=== PATIENT | male | born 1950 | race Caucasian/White ===

== ENCOUNTER 2019-11-10 17:53 | Emergency (ER) | payer MEDICARE ==
--- NOTE | 2019-11-10 18:38 | RAD ---
SINGLE VIEW OF THE CHEST: 11/10/19 COMPARISON: 04/06/16. HISTORY: Cough and tachycardia. FINDINGS: Single view of the chest shows a normal sized cardiomediastinal silhouette. There is no evidence of c onsolidation, mass, or pleural effusion. The bones are unremarkable. IMPRESSION: No evidence of acute cardiopulmonary disease. POS: [facility]
[2019-11-10 18:47] LABS: #Basophils 0.1 thou/uL (0.0-0.2); #Eosinphils 0.3 thou/uL (0.0-0.7); #Lymphocytes 3.9 thou/uL (1.20-3.40); #Monocytes 1.1 thou/uL (0.11-0.59); #Neutrophils 6.1 thou/uL (1.40-6.50); %Basophils 0.9 % (0.0-1.0); %Eosinophils 2.2 % (0.0-10.0); %Lymphocytes 34.2 % (21.0-51.0); %Neutrophils 52.8 % (42.0-75.0); Hemoglobin 15.7 g/dL (14.0-18.0); Mean Corpuscular HGB CONC 32.8 g/dL (32.0-36.0); Mean Corpuscular Hemoglobin 32.6 pg (27.0-31.0); Mean Corpuscular Volume 99.2 fL (78.0-98.0); Mean Platelet Volume 7.6 fL (7.4-10.4); Platelet Count 241 thou/uL (130-400); RBC Distribution Width 11.1 % (11.5-14.5); Red Blood Cell (RBC) Count 4.82 mill/uL (4.70-6.10); White Blood Cell (WBC) Count 11.5 thou/uL (4.8-10.8)
[2019-11-10 18:50] LABS: Bilirubin Negative (Negative); Blood, Urine Negative (Negative); Clarity Clear (Clear); Glucose, Urine (Dipstick) Negative (Negative); Leukocyte Negative (Negative); Nitrite Negative (Negative); Protein, Urine (Dipstick) Negative (Neg-Trace); Urobilinogen 0.2 mg/dL (Less than 2)
[2019-11-10 18:54] LABS: Amphetamine Not Detected (NotDetected); Barbiturates Screen Not Detected (NotDetected); Benzodiazepine Screen Not Detected (NotDetected); Cocaine Metabolite Screen Not Detected (NotDetected); Medtox Control Line Valid? VALID (VALID); Methadone Not Detected (NotDetected); Methamphetamine Not Detected (NotDetected); Opiate Screen Not Detected (NotDetected); Oxycodone Screen Not Detected (NotDetected); Phencyclidine (PCP) Not Detected (NotDetected); THC/Cannabinoid Screen Not Detected (NotDetected); Tricyclic Screen Not Detected (NotDetected)
[2019-11-10 19:00] LABS: Acetaminophen Less than 6.0 mcg/mL (10.0-30.0); Alcohol 156 mg/dL (Less than 10); Salicylate Less than 8.0 mg/dL (15.0-30.0)
[2019-11-10 19:04] LABS: ALT (SGPT) 16 U/L (8-55); AST (SGOT) 28 U/L (5-34); Albumin 4.1 g/dL (3.4-4.8); Alkaline Phosphatase 107 U/L (40-110); Anion Gap 18 mmol/L (10-20); BUN (Urea Nitrogen) 5 mg/dL (8.4-25.7); Bilirubin, Total 0.4 mg/dL (0.2-1.2); Calc. Creatinine Clearance 0 mL/min (70-130); Calcium 9.7 mg/dL (7.8-10.44); Carbon Dioxide 20 mmol/L (23-31); Chloride 96 mmol/L (98-107); Estimated GFR-MDRD Greater than 90; Globulin 3.5 g/dL (2.4-3.5); Glucose 112 mg/dL (80-115); Lipase 43 U/L (8-78); Potassium 3.4 mmol/L (3.5-5.1); Protein, Total 7.6 g/dL (5.8-8.1); Sodium 131 mmol/L (136-145)
[2019-11-10 19:05] LABS: CRP (Inflammatory) Less than 0.50 mg/dL (= or < 0.5); Magnesium 1.6 mg/dL (1.6-2.6)
== END 2019-11-10 20:00 | disposition home or self-care (01) ==
LOC: BURERS 17:53
DX: F10.129 Alcohol abuse with intoxication, unspecified (principal); E86.0 Dehydration; F17.210 Nicotine dependence, cigarettes, uncomplicated; Z79.899 Other long term (current) drug therapy
CPT/HCPCS: 71045; 80053; 80306; 80307; 81003; 83605; 83690; 83735; 84443; 84484; 85025; 86140; 93005; 94760; 96360

== ENCOUNTER 2021-03-06 23:34 | Inpatient (IN) | payer MEDICARE ==
[2021-03-07] MEDS ORDERED: Ondansetron PF 4 MG/2 ML Vial ONE (00:10)
[2021-03-07] MEDS ORDERED: Ketorolac Tromethamine 30 MG/ML VIAL ONE (00:10)
[2021-03-07] MEDS ORDERED: Fentanyl 100 MCG/2 ML VIAL ONE ×2 (00:10→02:25)
[2021-03-07 01:40] VITALS: BMI 17.1
[2021-03-07 02:22] LABS: SARS-CoV-2 NAA Rapid Test Not Detected (NotDetected)
[2021-03-07] MEDS ORDERED: HYDROcodone/Acetaminophen 5/325 mg Tablet PO PRN ×2 (02:40→02:41)
[2021-03-07] MEDS ORDERED: Ondansetron PF 4 MG/2 ML Vial IVP PRN (02:45)
[2021-03-07] MEDS ORDERED: Acetaminophen 325 MG TAB PO PRN (02:45)
[2021-03-07] MEDS ORDERED: Ondansetron ODT 4 MG TAB SL PRN (02:45)
[2021-03-07] MEDS ORDERED: traMADol HCl 50 MG TAB PO PRN (02:46)
[2021-03-07] MEDS ORDERED: Cyclobenzaprine 10 MG TAB PO PRN (02:48)
[2021-03-07] MEDS ORDERED: hydrOXYzine 25 MG TAB PO PRN (02:49)
[2021-03-07] MEDS ORDERED: SUMAtriptan Succinate 25 MG TAB PO PRN ×2 (02:56→09:52)
[2021-03-07] MEDS: Acetaminophen 500 MG TAB PO SCH ×4 (05:28→17:57)
[2021-03-07] MEDS: traMADol HCl 50 MG TAB PO SCH ×3 (05:29→17:58)
[2021-03-07] MEDS: Ibuprofen 200 MG TAB PO PRN (08:16)
[2021-03-07] MEDS: Gabapentin 300 MG CAP PO SCH ×4 (08:23→21:27)
[2021-03-07] MEDS: SERAX PO SCH ×2 (08:31→21:28)
[2021-03-07] MEDS ORDERED: Tamsulosin HCl 0.4 MG CAP PO SCH (09:00)
[2021-03-07] MEDS ORDERED: Thiamine 100 MG TAB PO SCH (09:00)
[2021-03-07] MEDS ORDERED: Folic Acid 1 MG TAB PO SCH (09:00)
[2021-03-07] MEDS ORDERED: Losartan Potassium 50 MG TAB PO SCH (09:00)
[2021-03-07] MEDS ORDERED: Amlodipine 5 MG TAB PO SCH (21:00)
[2021-03-07] MEDS ORDERED: OXAZEPAM 10 MG PO SCH (21:00)
[2021-03-07] MEDS ORDERED: traZODone HCl 50 MG TAB PO SCH (21:00)
[2021-03-07] MEDS: Amlodipine 5 MG TAB PO SCH (21:28)
[2021-03-08] MEDS: traMADol HCl 50 MG TAB PO SCH ×4 (00:28→17:38)
[2021-03-08] MEDS: Acetaminophen 500 MG TAB PO SCH ×4 (00:29→17:37)
[2021-03-08 05:09] LABS: #Basophils 0.1 thou/uL (0.0-0.2); #Eosinphils 0.3 thou/uL (0.0-0.7); #Neutrophils 4.7 thou/uL (1.40-6.50); %Basophils 0.7 % (0.0-1.0); %Eosinophils 3.5 % (0.0-10.0); %Lymphocytes 33.5 % (21.0-51.0); %Monocytes 10.6 % (0.0-10.0); %Neutrophils 51.7 % (42.0-75.0); Hemoglobin 12.6 g/dL (14.0-18.0); Mean Corpuscular Hemoglobin 31.6 pg (27.0-31.0); Mean Corpuscular Volume 92.9 fL (78.0-98.0); Mean Platelet Volume 7.6 fL (7.4-10.4); Platelet Count 328 thou/uL (130-400); RBC Distribution Width 12.5 % (11.5-14.5); White Blood Cell (WBC) Count 9.1 thou/uL (4.8-10.8)
[2021-03-08] MEDS: Folic Acid 1 MG TAB PO SCH (09:46)
[2021-03-08] MEDS: Gabapentin 300 MG CAP PO SCH ×3 (09:47→20:37)
[2021-03-08] MEDS: Losartan Potassium 50 MG TAB PO SCH (09:48)
[2021-03-08] MEDS: Tamsulosin HCl 0.4 MG CAP PO SCH (09:48)
[2021-03-08] MEDS: Thiamine 100 MG TAB PO SCH (09:48)
[2021-03-08] MEDS: SERAX PO SCH ×2 (09:49→20:38)
[2021-03-08] MEDS: Cyclobenzaprine 10 MG TAB PO PRN (09:53)
[2021-03-08] MEDS ORDERED: Norepinephrine 4 MG/4 ML VIAL ONE (11:36)
[2021-03-08] MEDS: Amlodipine 5 MG TAB PO SCH (20:37)
[2021-03-09] MEDS: Acetaminophen 500 MG TAB PO SCH ×5 (01:18→23:54)
[2021-03-09] MEDS: traMADol HCl 50 MG TAB PO SCH ×5 (01:19→23:55)
[2021-03-09] MEDS: Gabapentin 300 MG CAP PO SCH ×3 (07:57→20:15)
[2021-03-09] MEDS: Folic Acid 1 MG TAB PO SCH (07:57)
[2021-03-09] MEDS: Losartan Potassium 50 MG TAB PO SCH (07:58)
[2021-03-09] MEDS: Tamsulosin HCl 0.4 MG CAP PO SCH (07:58)
[2021-03-09] MEDS: Thiamine 100 MG TAB PO SCH (07:58)
[2021-03-09] MEDS: SERAX PO SCH ×2 (08:00→21:41)
[2021-03-09] MEDS: Polyethylene Glycol 3350 17 GM Packet PO PRN (14:30)
[2021-03-09] MEDS: Amlodipine 5 MG TAB PO SCH (20:15)
[2021-03-09] MEDS: hydrOXYzine 25 MG TAB PO PRN (20:16)
[2021-03-10] MEDS: Acetaminophen 500 MG TAB PO SCH ×4 (05:06→23:57)
[2021-03-10] MEDS: traMADol HCl 50 MG TAB PO SCH ×4 (05:08→23:58)
[2021-03-10] MEDS: Thiamine 100 MG TAB PO SCH (09:23)
[2021-03-10] MEDS: Tamsulosin HCl 0.4 MG CAP PO SCH (09:24)
[2021-03-10] MEDS: Gabapentin 300 MG CAP PO SCH ×3 (09:24→22:53)
[2021-03-10] MEDS: Folic Acid 1 MG TAB PO SCH (09:24)
[2021-03-10] MEDS: Losartan Potassium 50 MG TAB PO SCH (09:24)
[2021-03-10] MEDS: SERAX PO SCH ×2 (09:31→22:58)
[2021-03-10] MEDS: Amlodipine 5 MG TAB PO SCH (22:53)
[2021-03-11] MEDS: traMADol HCl 50 MG TAB PO SCH ×4 (06:24→23:38)
[2021-03-11] MEDS: Acetaminophen 500 MG TAB PO SCH ×4 (06:25→23:37)
[2021-03-11] MEDS: Losartan Potassium 50 MG TAB PO SCH (09:26)
[2021-03-11] MEDS: Gabapentin 300 MG CAP PO SCH ×3 (09:26→21:48)
[2021-03-11] MEDS: Tamsulosin HCl 0.4 MG CAP PO SCH (09:27)
[2021-03-11] MEDS: Folic Acid 1 MG TAB PO SCH (09:27)
[2021-03-11] MEDS: Thiamine 100 MG TAB PO SCH (09:27)
[2021-03-11] MEDS: SERAX PO SCH ×2 (09:28→21:49)
[2021-03-11] MEDS: Amlodipine 5 MG TAB PO SCH (21:47)
[2021-03-11] MEDS: Ibuprofen 200 MG TAB PO PRN (21:48)
[2021-03-12] MEDS: Acetaminophen 500 MG TAB PO SCH ×4 (05:46→23:54)
[2021-03-12] MEDS: traMADol HCl 50 MG TAB PO SCH ×4 (05:47→23:53)
[2021-03-12] MEDS: Gabapentin 300 MG CAP PO SCH ×3 (08:54→20:07)
[2021-03-12] MEDS: Folic Acid 1 MG TAB PO SCH (08:54)
[2021-03-12] MEDS: Tamsulosin HCl 0.4 MG CAP PO SCH (08:55)
[2021-03-12] MEDS: Losartan Potassium 50 MG TAB PO SCH (08:55)
[2021-03-12] MEDS: Thiamine 100 MG TAB PO SCH (08:55)
[2021-03-12] MEDS: SERAX PO SCH ×2 (08:56→20:08)
[2021-03-12] MEDS: Amlodipine 5 MG TAB PO SCH (20:07)
[2021-03-12] MEDS: Ibuprofen 200 MG TAB PO PRN (20:10)
[2021-03-12] MEDS: hydrOXYzine 25 MG TAB PO PRN (21:09)
[2021-03-13] MEDS: traMADol HCl 50 MG TAB PO SCH ×4 (05:17→23:24)
[2021-03-13] MEDS: Acetaminophen 500 MG TAB PO SCH ×4 (05:18→23:23)
[2021-03-13] MEDS: Polyethylene Glycol 3350 17 GM Packet PO PRN (08:39)
[2021-03-13] MEDS: Gabapentin 300 MG CAP PO SCH ×3 (08:40→20:31)
[2021-03-13] MEDS: Thiamine 100 MG TAB PO SCH (08:41)
[2021-03-13] MEDS: Losartan Potassium 50 MG TAB PO SCH (08:41)
[2021-03-13] MEDS: Folic Acid 1 MG TAB PO SCH (08:41)
[2021-03-13] MEDS: Tamsulosin HCl 0.4 MG CAP PO SCH (08:41)
[2021-03-13] MEDS: SERAX PO SCH ×2 (08:42→23:10)
[2021-03-13] MEDS: Cyclobenzaprine 10 MG TAB PO PRN (10:46)
[2021-03-13] MEDS: Ibuprofen 200 MG TAB PO PRN (10:49)
[2021-03-13] MEDS: hydrOXYzine 25 MG TAB PO PRN (20:31)
[2021-03-13] MEDS: Amlodipine 5 MG TAB PO SCH (20:31)
[2021-03-14] MEDS: Acetaminophen 500 MG TAB PO SCH ×4 (07:09→23:49)
[2021-03-14] MEDS: traMADol HCl 50 MG TAB PO SCH ×4 (07:11→23:49)
[2021-03-14] MEDS: Polyethylene Glycol 3350 17 GM Packet PO PRN (08:28)
[2021-03-14] MEDS: Tamsulosin HCl 0.4 MG CAP PO SCH (08:29)
[2021-03-14] MEDS: Losartan Potassium 50 MG TAB PO SCH (08:30)
[2021-03-14] MEDS: Folic Acid 1 MG TAB PO SCH (08:30)
[2021-03-14] MEDS: Thiamine 100 MG TAB PO SCH (08:30)
[2021-03-14] MEDS: Gabapentin 300 MG CAP PO SCH ×3 (08:31→20:27)
[2021-03-14] MEDS: SERAX PO SCH ×2 (10:31→20:28)
[2021-03-14] MEDS: hydrOXYzine 25 MG TAB PO PRN (20:28)
[2021-03-14] MEDS: Amlodipine 5 MG TAB PO SCH (20:28)
[2021-03-14 23:19] LABS: SARS-CoV-2 PCR by NAA Not Detected (NotDetected)
[2021-03-15] MEDS: traMADol HCl 50 MG TAB PO SCH ×4 (05:27→23:51)
[2021-03-15] MEDS: Acetaminophen 500 MG TAB PO SCH ×4 (05:28→23:51)
[2021-03-15] MEDS: Polyethylene Glycol 3350 17 GM Packet PO PRN (08:41)
[2021-03-15] MEDS: Folic Acid 1 MG TAB PO SCH (08:41)
[2021-03-15] MEDS: Gabapentin 300 MG CAP PO SCH ×3 (08:41→20:09)
[2021-03-15] MEDS: Thiamine 100 MG TAB PO SCH (08:42)
[2021-03-15] MEDS: Tamsulosin HCl 0.4 MG CAP PO SCH (08:42)
[2021-03-15] MEDS: SERAX PO SCH ×2 (08:42→21:14)
[2021-03-15] MEDS: Losartan Potassium 50 MG TAB PO SCH (08:42)
[2021-03-15] MEDS: Cyclobenzaprine 10 MG TAB PO PRN (16:02)
[2021-03-15] MEDS: hydrOXYzine 25 MG TAB PO PRN (20:08)
[2021-03-15] MEDS: Amlodipine 5 MG TAB PO SCH (20:08)
[2021-03-16] MEDS: Acetaminophen 500 MG TAB PO SCH ×3 (05:40→17:52)
[2021-03-16] MEDS: traMADol HCl 50 MG TAB PO SCH ×3 (05:41→17:51)
[2021-03-16] MEDS: Tamsulosin HCl 0.4 MG CAP PO SCH (08:17)
[2021-03-16] MEDS: Gabapentin 300 MG CAP PO SCH ×3 (08:17→20:44)
[2021-03-16] MEDS: Losartan Potassium 50 MG TAB PO SCH (08:17)
[2021-03-16] MEDS: Folic Acid 1 MG TAB PO SCH (08:18)
[2021-03-16] MEDS: Thiamine 100 MG TAB PO SCH (08:18)
[2021-03-16] MEDS: Ibuprofen 200 MG TAB PO PRN (10:17)
[2021-03-16] MEDS: SERAX PO SCH ×2 (17:52→21:00)
[2021-03-16] MEDS: Amlodipine 5 MG TAB PO SCH (20:43)
[2021-03-16] MEDS: hydrOXYzine 25 MG TAB PO PRN (20:44)
[2021-03-17] MEDS: Acetaminophen 500 MG TAB PO SCH ×5 (00:23→23:57)
[2021-03-17] MEDS: traMADol HCl 50 MG TAB PO SCH ×5 (00:23→23:56)
[2021-03-17] MEDS: Tamsulosin HCl 0.4 MG CAP PO SCH (09:57)
[2021-03-17] MEDS: Gabapentin 300 MG CAP PO SCH ×3 (09:57→20:21)
[2021-03-17] MEDS: Losartan Potassium 50 MG TAB PO SCH (09:58)
[2021-03-17] MEDS: Thiamine 100 MG TAB PO SCH (09:58)
[2021-03-17] MEDS: Folic Acid 1 MG TAB PO SCH (09:58)
[2021-03-17] MEDS: SERAX PO SCH (09:59)
[2021-03-17] MEDS: hydrOXYzine 25 MG TAB PO PRN (20:21)
[2021-03-17] MEDS: Amlodipine 5 MG TAB PO SCH (20:21)
[2021-03-18] MEDS: Acetaminophen 500 MG TAB PO SCH ×4 (05:23→23:47)
[2021-03-18] MEDS: traMADol HCl 50 MG TAB PO SCH ×4 (05:23→23:48)
[2021-03-18] MEDS: Gabapentin 300 MG CAP PO SCH ×3 (08:29→20:31)
[2021-03-18] MEDS: Tamsulosin HCl 0.4 MG CAP PO SCH (08:30)
[2021-03-18] MEDS: Folic Acid 1 MG TAB PO SCH (08:30)
[2021-03-18] MEDS: Thiamine 100 MG TAB PO SCH (08:30)
[2021-03-18] MEDS: Losartan Potassium 50 MG TAB PO SCH (08:30)
[2021-03-18] MEDS: Amlodipine 5 MG TAB PO SCH (20:31)
[2021-03-18] MEDS: hydrOXYzine 25 MG TAB PO PRN (20:31)
[2021-03-19 00:50] LABS: SARS-CoV-2 PCR by NAA Not Detected (NotDetected)
[2021-03-19] MEDS: traMADol HCl 50 MG TAB PO SCH ×3 (05:27→17:41)
[2021-03-19] MEDS: Acetaminophen 500 MG TAB PO SCH ×3 (05:28→17:41)
[2021-03-19] MEDS: Folic Acid 1 MG TAB PO SCH (08:23)
[2021-03-19] MEDS: Thiamine 100 MG TAB PO SCH (08:23)
[2021-03-19] MEDS: Gabapentin 300 MG CAP PO SCH ×3 (08:24→20:11)
[2021-03-19] MEDS: Tamsulosin HCl 0.4 MG CAP PO SCH (08:24)
[2021-03-19] MEDS: Losartan Potassium 50 MG TAB PO SCH (08:25)
[2021-03-19] MEDS: Amlodipine 5 MG TAB PO SCH (20:11)
[2021-03-19] MEDS: Cyclobenzaprine 10 MG TAB PO PRN (20:12)
[2021-03-20] MEDS: traMADol HCl 50 MG TAB PO SCH ×5 (00:12→23:52)
[2021-03-20] MEDS: Acetaminophen 500 MG TAB PO SCH ×5 (00:12→23:51)
[2021-03-20] MEDS: Gabapentin 300 MG CAP PO SCH ×3 (04:15→20:39)
[2021-03-20] MEDS: Losartan Potassium 50 MG TAB PO SCH (04:16)
[2021-03-20] MEDS: Tamsulosin HCl 0.4 MG CAP PO SCH (04:17)
[2021-03-20] MEDS: Thiamine 100 MG TAB PO SCH (17:40)
[2021-03-20] MEDS: Folic Acid 1 MG TAB PO SCH (17:41)
[2021-03-20] MEDS: Amlodipine 5 MG TAB PO SCH (20:39)
[2021-03-20] MEDS: hydrOXYzine 25 MG TAB PO PRN (20:39)
[2021-03-21] MEDS: Cyclobenzaprine 10 MG TAB PO PRN (01:04)
[2021-03-21] MEDS: Ibuprofen 200 MG TAB PO PRN ×2 (03:55→22:17)
[2021-03-21] MEDS: Acetaminophen 500 MG TAB PO SCH ×4 (05:38→23:41)
[2021-03-21] MEDS: traMADol HCl 50 MG TAB PO SCH ×4 (05:38→23:43)
[2021-03-21] MEDS: Thiamine 100 MG TAB PO SCH (08:24)
[2021-03-21] MEDS: Gabapentin 300 MG CAP PO SCH ×3 (08:24→19:39)
[2021-03-21] MEDS: Folic Acid 1 MG TAB PO SCH (08:25)
[2021-03-21] MEDS: Losartan Potassium 50 MG TAB PO SCH (08:25)
[2021-03-21] MEDS: Tamsulosin HCl 0.4 MG CAP PO SCH (08:25)
[2021-03-21] MEDS: hydrOXYzine 25 MG TAB PO PRN (19:38)
[2021-03-21] MEDS: Amlodipine 5 MG TAB PO SCH (19:39)
[2021-03-22] MEDS: Cyclobenzaprine 10 MG TAB PO PRN (02:53)
[2021-03-22] MEDS: traMADol HCl 50 MG TAB PO SCH ×4 (05:27→23:51)
[2021-03-22] MEDS: Acetaminophen 500 MG TAB PO SCH ×4 (05:28→23:55)
[2021-03-22] MEDS: Tamsulosin HCl 0.4 MG CAP PO SCH (08:35)
[2021-03-22] MEDS: Thiamine 100 MG TAB PO SCH (08:35)
[2021-03-22] MEDS: Gabapentin 300 MG CAP PO SCH ×3 (08:36→20:50)
[2021-03-22] MEDS: Folic Acid 1 MG TAB PO SCH (08:36)
[2021-03-22] MEDS: Losartan Potassium 50 MG TAB PO SCH (08:36)
[2021-03-22] MEDS: hydrOXYzine 25 MG TAB PO PRN (20:50)
[2021-03-22] MEDS: Amlodipine 5 MG TAB PO SCH (20:51)
[2021-03-22 23:30] LABS: SARS-CoV-2 PCR by NAA Not Detected (NotDetected)
[2021-03-23] MEDS: Acetaminophen 500 MG TAB PO SCH ×4 (05:32→23:38)
[2021-03-23] MEDS: traMADol HCl 50 MG TAB PO SCH ×4 (05:32→23:37)
[2021-03-23] MEDS: Folic Acid 1 MG TAB PO SCH (09:08)
[2021-03-23] MEDS: Thiamine 100 MG TAB PO SCH (09:08)
[2021-03-23] MEDS: Losartan Potassium 50 MG TAB PO SCH (09:08)
[2021-03-23] MEDS: Tamsulosin HCl 0.4 MG CAP PO SCH (09:08)
[2021-03-23] MEDS: Gabapentin 300 MG CAP PO SCH ×3 (09:08→20:30)
[2021-03-23] MEDS: Ibuprofen 200 MG TAB PO PRN (11:13)
[2021-03-23] MEDS: hydrOXYzine 25 MG TAB PO PRN (20:31)
[2021-03-23] MEDS: Amlodipine 5 MG TAB PO SCH (20:31)
[2021-03-24] MEDS: Acetaminophen 500 MG TAB PO SCH ×3 (05:29→17:35)
[2021-03-24] MEDS: traMADol HCl 50 MG TAB PO SCH ×3 (05:29→17:35)
[2021-03-24] MEDS: Polyethylene Glycol 3350 17 GM Packet PO PRN (09:45)
[2021-03-24] MEDS: Thiamine 100 MG TAB PO SCH (09:45)
[2021-03-24] MEDS: Tamsulosin HCl 0.4 MG CAP PO SCH (09:45)
[2021-03-24] MEDS: Losartan Potassium 50 MG TAB PO SCH (09:45)
[2021-03-24] MEDS: Folic Acid 1 MG TAB PO SCH (09:45)
[2021-03-24] MEDS: Gabapentin 300 MG CAP PO SCH ×3 (09:45→20:46)
[2021-03-24] MEDS: hydrOXYzine 25 MG TAB PO PRN (20:46)
[2021-03-24] MEDS: Amlodipine 5 MG TAB PO SCH (20:47)
[2021-03-25] MEDS: Acetaminophen 500 MG TAB PO SCH ×4 (00:28→17:59)
[2021-03-25] MEDS: traMADol HCl 50 MG TAB PO SCH ×4 (00:29→18:00)
[2021-03-25] MEDS: Gabapentin 300 MG CAP PO SCH ×3 (09:18→20:44)
[2021-03-25] MEDS: Losartan Potassium 50 MG TAB PO SCH (09:19)
[2021-03-25] MEDS: Tamsulosin HCl 0.4 MG CAP PO SCH (09:19)
[2021-03-25] MEDS: Thiamine 100 MG TAB PO SCH (09:19)
[2021-03-25] MEDS: Folic Acid 1 MG TAB PO SCH (09:20)
[2021-03-25] MEDS: Amlodipine 5 MG TAB PO SCH (20:43)
[2021-03-26] MEDS: traMADol HCl 50 MG TAB PO SCH ×5 (00:23→23:36)
[2021-03-26] MEDS: Acetaminophen 500 MG TAB PO SCH ×5 (00:25→23:37)
[2021-03-26] MEDS: Folic Acid 1 MG TAB PO SCH (09:38)
[2021-03-26] MEDS: Gabapentin 300 MG CAP PO SCH ×3 (09:38→20:19)
[2021-03-26] MEDS: Tamsulosin HCl 0.4 MG CAP PO SCH (09:38)
[2021-03-26] MEDS: Thiamine 100 MG TAB PO SCH (09:39)
[2021-03-26] MEDS: Losartan Potassium 50 MG TAB PO SCH (09:39)
[2021-03-26 15:16] LABS: SARS-CoV-2 PCR by NAA Not Detected (NotDetected)
[2021-03-26] MEDS: hydrOXYzine 25 MG TAB PO PRN (20:21)
[2021-03-26] MEDS: Amlodipine 5 MG TAB PO SCH (20:22)
[2021-03-27] MEDS: traMADol HCl 50 MG TAB PO SCH ×4 (05:33→23:41)
[2021-03-27] MEDS: Acetaminophen 500 MG TAB PO SCH ×4 (05:34→23:41)
[2021-03-27] MEDS: Losartan Potassium 50 MG TAB PO SCH (09:35)
[2021-03-27] MEDS: Tamsulosin HCl 0.4 MG CAP PO SCH (09:54)
[2021-03-27] MEDS: Ibuprofen 200 MG TAB PO PRN (09:55)
[2021-03-27] MEDS: Thiamine 100 MG TAB PO SCH (09:56)
[2021-03-27] MEDS: Gabapentin 300 MG CAP PO SCH ×3 (09:56→20:32)
[2021-03-27] MEDS: Folic Acid 1 MG TAB PO SCH (09:56)
[2021-03-27] MEDS: hydrOXYzine 25 MG TAB PO PRN (20:33)
[2021-03-27] MEDS: Amlodipine 5 MG TAB PO SCH (20:33)
[2021-03-28] MEDS: Acetaminophen 500 MG TAB PO SCH ×4 (05:36→23:42)
[2021-03-28] MEDS: traMADol HCl 50 MG TAB PO SCH ×4 (05:37→23:43)
[2021-03-28] MEDS: Gabapentin 300 MG CAP PO SCH ×3 (07:58→20:29)
[2021-03-28] MEDS: Tamsulosin HCl 0.4 MG CAP PO SCH (07:59)
[2021-03-28] MEDS: Folic Acid 1 MG TAB PO SCH (07:59)
[2021-03-28] MEDS: Losartan Potassium 50 MG TAB PO SCH (07:59)
[2021-03-28] MEDS: Thiamine 100 MG TAB PO SCH (07:59)
[2021-03-28 17:39] LABS: Bilirubin Negative (Negative); Blood, Urine Moderate (Negative); Clarity Cloudy (Clear); Glucose, Urine (Dipstick) Negative (Negative); Ketone, Urine 15 mg/dL (Negative); Leukocyte Large (Negative); Nitrite Positive (Negative); Protein, Urine (Dipstick) 30 mg/dL (Neg-Trace)
[2021-03-28 17:44] LABS: Squamous Epithelial None Seen HPF (0-3); WBC/HPF 21-50 HPF (0-3)
[2021-03-28 17:45] LABS: Bacteria/HPF 3+ HPF (None Seen)
[2021-03-28] MEDS: Amlodipine 5 MG TAB PO SCH (20:29)
[2021-03-28] MEDS: Ciprofloxacin 500 MG TAB PO SCH (20:30)
[2021-03-29] MEDS: Ciprofloxacin 500 MG TAB PO SCH ×2 (05:41→20:21)
[2021-03-29] MEDS: traMADol HCl 50 MG TAB PO SCH ×3 (05:41→17:21)
[2021-03-29] MEDS: Acetaminophen 500 MG TAB PO SCH ×3 (05:42→17:20)
[2021-03-29] MEDS: Thiamine 100 MG TAB PO SCH (08:46)
[2021-03-29] MEDS: Tamsulosin HCl 0.4 MG CAP PO SCH (08:46)
[2021-03-29] MEDS: Gabapentin 300 MG CAP PO SCH ×3 (08:46→20:22)
[2021-03-29] MEDS: Losartan Potassium 50 MG TAB PO SCH (08:46)
[2021-03-29] MEDS: Folic Acid 1 MG TAB PO SCH (08:46)
[2021-03-29] MEDS: Amlodipine 5 MG TAB PO SCH (20:22)
[2021-03-29] MEDS: hydrOXYzine 25 MG TAB PO PRN (20:24)
[2021-03-30] MEDS: traMADol HCl 50 MG TAB PO SCH ×5 (00:04→23:10)
[2021-03-30] MEDS: Acetaminophen 500 MG TAB PO SCH ×5 (00:05→23:11)
[2021-03-30] MEDS: Ciprofloxacin 500 MG TAB PO SCH ×2 (05:07→20:10)
[2021-03-30] MEDS: Gabapentin 300 MG CAP PO SCH ×3 (09:49→20:09)
[2021-03-30] MEDS: Losartan Potassium 50 MG TAB PO SCH (09:50)
[2021-03-30] MEDS: Tamsulosin HCl 0.4 MG CAP PO SCH (09:50)
[2021-03-30] MEDS: Thiamine 100 MG TAB PO SCH (09:50)
[2021-03-30] MEDS: Folic Acid 1 MG TAB PO SCH (09:50)
[2021-03-30] MEDS: Amlodipine 5 MG TAB PO SCH (20:07)
[2021-03-30 23:35] LABS: SARS-CoV-2 PCR by NAA Not Detected (NotDetected)
[2021-03-31] MEDS: Ciprofloxacin 500 MG TAB PO SCH ×2 (06:07→20:09)
[2021-03-31] MEDS: Acetaminophen 500 MG TAB PO SCH ×3 (06:07→17:18)
[2021-03-31] MEDS: traMADol HCl 50 MG TAB PO SCH ×3 (06:07→17:19)
[2021-03-31] MEDS: Thiamine 100 MG TAB PO SCH (08:19)
[2021-03-31] MEDS: Folic Acid 1 MG TAB PO SCH (08:19)
[2021-03-31] MEDS: Tamsulosin HCl 0.4 MG CAP PO SCH (08:19)
[2021-03-31] MEDS: Gabapentin 300 MG CAP PO SCH ×3 (08:19→20:08)
[2021-03-31] MEDS: Losartan Potassium 50 MG TAB PO SCH (08:19)
[2021-03-31] MEDS: Ibuprofen 200 MG TAB PO PRN (16:20)
[2021-03-31] MEDS: hydrOXYzine 25 MG TAB PO PRN (20:08)
[2021-03-31] MEDS: Amlodipine 5 MG TAB PO SCH (20:09)
[2021-04-01] MEDS: Acetaminophen 500 MG TAB PO SCH ×4 (01:00→17:58)
[2021-04-01] MEDS: traMADol HCl 50 MG TAB PO SCH ×4 (01:00→17:58)
[2021-04-01] MEDS: Ciprofloxacin 500 MG TAB PO SCH ×2 (05:10→20:18)
[2021-04-01] MEDS: Tamsulosin HCl 0.4 MG CAP PO SCH (09:02)
[2021-04-01] MEDS: Losartan Potassium 50 MG TAB PO SCH (09:03)
[2021-04-01] MEDS: Gabapentin 300 MG CAP PO SCH ×3 (09:03→20:17)
[2021-04-01] MEDS: Folic Acid 1 MG TAB PO SCH (09:04)
[2021-04-01] MEDS: Thiamine 100 MG TAB PO SCH (09:04)
[2021-04-01] MEDS: Cyclobenzaprine 10 MG TAB PO PRN (09:09)
[2021-04-01] MEDS: hydrOXYzine 25 MG TAB PO PRN (20:18)
[2021-04-01] MEDS: Amlodipine 5 MG TAB PO SCH (20:18)
[2021-04-02] MEDS: Acetaminophen 500 MG TAB PO SCH ×3 (00:02→12:09)
[2021-04-02] MEDS: traMADol HCl 50 MG TAB PO SCH ×3 (00:03→12:10)
[2021-04-02 05:07] VITALS: BP 123/62; TEMP 98.1
[2021-04-02] MEDS: Ciprofloxacin 500 MG TAB PO SCH (05:30)
[2021-04-02] MEDS: Gabapentin 300 MG CAP PO SCH (08:03)
[2021-04-02] MEDS: Thiamine 100 MG TAB PO SCH (08:04)
[2021-04-02] MEDS: Folic Acid 1 MG TAB PO SCH (08:04)
[2021-04-02] MEDS: Tamsulosin HCl 0.4 MG CAP PO SCH (08:04)
[2021-04-02] MEDS: Losartan Potassium 50 MG TAB PO SCH (08:04)
[2021-04-02] MEDS: Cyclobenzaprine 10 MG TAB PO PRN (08:06)
== END 2021-04-02 12:20 | disposition home or self-care (01) | DRG 563 ==
LOC: BURERS 23:34 → UNDOADMIN 03-07 00:50 → BURMED 03-07 00:50
PROVIDERS: ADMIT Family Medicine; ATTEND Family Medicine
DX: S42.211A Unspecified displaced fracture of surgical neck of right humerus, initial encounter for closed fracture (principal); N39.0 Urinary tract infection, site not specified; S42.202D Unspecified fracture of upper end of left humerus, subsequent encounter for fracture with routine healing; S32.011D Stable burst fracture of first lumbar vertebra, subsequent encounter for fracture with routine healing; S51.011A Laceration without foreign body of right elbow, initial encounter; W19.XXXA Unspecified fall, initial encounter; I73.9 Peripheral vascular disease, unspecified; N40.0 Benign prostatic hyperplasia without lower urinary tract symptoms; I10 Essential (primary) hypertension; F17.210 Nicotine dependence, cigarettes, uncomplicated; B96.89 Other specified bacterial agents as the cause of diseases classified elsewhere; Y92.009 Unspecified place in unspecified non-institutional (private) residence as the place of occurrence of the external cause; Z95.5 Presence of coronary angioplasty implant and graft
CPT/HCPCS: 36415; 72100; 81001; 85025; 87077; 87086; 87186; 96374; 96375; 96376; J1885; J2405; J3010; Q0162; U0002; U0003; U0005

== ENCOUNTER 2021-06-02 21:53 | Emergency (ER) | payer MEDICARE ==
[2021-06-02] MEDS ORDERED: traMADol HCl 50 MG TAB ONE (22:14)
== END 2021-06-02 22:38 | disposition home or self-care (01) ==
LOC: BURERS 21:53
DX: M54.50 Low back pain, unspecified (principal); I10 Essential (primary) hypertension; F17.210 Nicotine dependence, cigarettes, uncomplicated; W18.11XA Fall from or off toilet without subsequent striking against object, initial encounter; Y92.002 Bathroom of unspecified non-institutional (private) residence as the place of occurrence of the external cause; Z95.5 Presence of coronary angioplasty implant and graft; Z79.899 Other long term (current) drug therapy
CPT/HCPCS: 72100

== ENCOUNTER 2022-04-20 14:54 | Inpatient (IN) | payer MEDICARE ==
[2022-04-20] MEDS ORDERED: SUMAtriptan Succinate 25 MG TAB PO PRN (17:06)
[2022-04-20] MEDS: Acetaminophen 500 MG TAB PO SCH ×2 (18:14→23:49)
[2022-04-20] MEDS: traMADol HCl 50 MG TAB PO SCH ×2 (18:14→23:48)
[2022-04-20] MEDS ORDERED: Clindamycin 150 MG CAP PO SCH (21:00)
[2022-04-20] MEDS: Clindamycin 150 MG CAP PO SCH (21:17)
[2022-04-20] MEDS: [UNRECOGNIZED DRUG - OTHER] FS SCH (21:17)
[2022-04-20] MEDS: Saccharomyces boulardii 250 MG CAP PO SCH (21:17)
[2022-04-20] MEDS: Senokot S 8.6-50 MG TAB PO SCH (21:17)
[2022-04-21 04:52] VITALS: BMI 17.2
[2022-04-21] MEDS: Acetaminophen 500 MG TAB PO SCH ×3 (06:08→17:49)
[2022-04-21] MEDS: traMADol HCl 50 MG TAB PO SCH ×3 (06:08→17:50)
[2022-04-21] MEDS ORDERED: FLU VACC QS2022-23(65YR UP)/PF 240 MCG/0.7 ML SYRINGE IM ONE (09:00)
[2022-04-21] MEDS: Tamsulosin HCl 0.4 MG CAP PO SCH (10:38)
[2022-04-21] MEDS: Senokot S 8.6-50 MG TAB PO SCH ×2 (10:38→21:39)
[2022-04-21] MEDS: Clindamycin 150 MG CAP PO SCH ×4 (10:38→21:39)
[2022-04-21] MEDS: Thiamine 100 MG TAB PO SCH (10:38)
[2022-04-21] MEDS: Amlodipine 5 MG TAB PO SCH (10:39)
[2022-04-21] MEDS: Folic Acid 1 MG TAB PO SCH (10:39)
[2022-04-21] MEDS: [UNRECOGNIZED DRUG - OTHER] FS SCH (13:09)
[2022-04-21] MEDS: Saccharomyces boulardii 250 MG CAP PO SCH (21:39)
[2022-04-22] MEDS: Acetaminophen 500 MG TAB PO SCH ×6 (03:22→21:54)
[2022-04-22] MEDS: traMADol HCl 50 MG TAB PO SCH ×6 (03:22→21:55)
[2022-04-22] MEDS: Senokot S 8.6-50 MG TAB PO SCH ×2 (09:03→21:55)
[2022-04-22] MEDS: Thiamine 100 MG TAB PO SCH (09:04)
[2022-04-22] MEDS: Amlodipine 5 MG TAB PO SCH (09:04)
[2022-04-22] MEDS: Clindamycin 150 MG CAP PO SCH ×4 (09:04→21:53)
[2022-04-22] MEDS: Tamsulosin HCl 0.4 MG CAP PO SCH (09:04)
[2022-04-22] MEDS: Folic Acid 1 MG TAB PO SCH (09:05)
[2022-04-22] MEDS: Chlorhexidine Gluconate 15 ML UDCUP SSP SCH ×2 (10:44→21:53)
[2022-04-22] MEDS: Saccharomyces boulardii 250 MG CAP PO SCH (21:55)
[2022-04-23] MEDS: traMADol HCl 50 MG TAB PO SCH ×3 (04:01→18:39)
[2022-04-23] MEDS: Acetaminophen 500 MG TAB PO SCH ×3 (04:01→18:39)
[2022-04-23 05:45] VITALS: TEMP 98
[2022-04-23] MEDS: Chlorhexidine Gluconate 15 ML UDCUP SSP SCH (09:01)
[2022-04-23] MEDS: Folic Acid 1 MG TAB PO SCH (09:02)
[2022-04-23] MEDS: Senokot S 8.6-50 MG TAB PO SCH (09:02)
[2022-04-23] MEDS: Amlodipine 5 MG TAB PO SCH (09:02)
[2022-04-23] MEDS: Tamsulosin HCl 0.4 MG CAP PO SCH (09:03)
[2022-04-23] MEDS: Thiamine 100 MG TAB PO SCH (09:03)
[2022-04-23] MEDS: Clindamycin 150 MG CAP PO SCH ×3 (09:03→18:39)
[2022-04-23 19:17] VITALS: BP 152/80
== END 2022-04-23 18:55 | disposition home health service (06) | DRG 948 ==
LOC: BURMED 16:15
PROVIDERS: ADMIT Family Medicine; ATTEND Family Medicine
DX: R53.1 Weakness (principal); K12.2 Cellulitis and abscess of mouth; I10 Essential (primary) hypertension; Z98.890 Other specified postprocedural states

== ENCOUNTER 2022-05-19 09:51 | Inpatient (IN) | payer MEDICARE ==
[2022-05-19] MEDS ORDERED: SUMAtriptan Succinate 25 MG TAB PO PRN (12:33)
[2022-05-19] MEDS ORDERED: Meropenem 1 GM in Sodium Chloride 0.9% 100 ML IVPB SCH ×2 (12:45→22:00)
[2022-05-19] MEDS ORDERED: Meropenem 1 GM VIAL IVPB SCH (13:00)
[2022-05-19] MEDS: traMADol HCl 50 MG TAB PO SCH ×3 (13:58→23:51)
[2022-05-19] MEDS: Meropenem 1 GM in Sodium Chloride 0.9% 100 ML IVPB SCH ×2 (14:01→21:09)
[2022-05-19] MEDS: Acetaminophen 500 MG TAB PO SCH ×2 (18:07→23:51)
[2022-05-19] MEDS: Chlorhexidine Gluconate 15 ML UDCUP SSP SCH (20:20)
[2022-05-19] MEDS: Saccharomyces boulardii 250 MG CAP PO SCH (20:21)
[2022-05-19] MEDS: Senokot S 8.6-50 MG TAB PO SCH (20:21)
[2022-05-19] MEDS ORDERED: Melatonin 3 MG TAB PO SCH (21:00)
[2022-05-19] MEDS: Melatonin 3 MG TAB PO SCH (21:47)
[2022-05-20] MEDS: Acetaminophen 500 MG TAB PO SCH ×3 (05:58→18:07)
[2022-05-20] MEDS: Meropenem 1 GM in Sodium Chloride 0.9% 100 ML IVPB SCH ×3 (05:58→22:02)
[2022-05-20] MEDS: traMADol HCl 50 MG TAB PO SCH ×3 (05:59→18:08)
[2022-05-20] MEDS: Multivit, Therapeutic 1 TAB PO SCH (08:49)
[2022-05-20] MEDS: Polyethylene Glycol 3350 17 GM Packet PO SCH (08:49)
[2022-05-20] MEDS: Amlodipine 5 MG TAB PO SCH (08:49)
[2022-05-20] MEDS: Senokot S 8.6-50 MG TAB PO SCH ×2 (08:49→22:02)
[2022-05-20] MEDS: Thiamine 100 MG TAB PO SCH (08:49)
[2022-05-20] MEDS: Tamsulosin HCl 0.4 MG CAP PO SCH (08:49)
[2022-05-20] MEDS: Folic Acid 1 MG TAB PO SCH (08:49)
[2022-05-20] MEDS: Chlorhexidine Gluconate 15 ML UDCUP SSP SCH ×2 (08:52→22:01)
[2022-05-20] MEDS ORDERED: Milk Of Magnesia 30 ML UDCUP PO PRN ×2 (10:40→16:12)
[2022-05-20] MEDS: Melatonin 3 MG TAB PO SCH (22:01)
[2022-05-20] MEDS: Saccharomyces boulardii 250 MG CAP PO SCH (22:02)
[2022-05-21] MEDS: Acetaminophen 500 MG TAB PO SCH ×4 (00:32→17:52)
[2022-05-21] MEDS: traMADol HCl 50 MG TAB PO SCH ×4 (00:33→17:50)
[2022-05-21] MEDS: Meropenem 1 GM in Sodium Chloride 0.9% 100 ML IVPB SCH ×3 (06:17→22:13)
[2022-05-21] MEDS: Polyethylene Glycol 3350 17 GM Packet PO SCH (08:38)
[2022-05-21] MEDS: Multivit, Therapeutic 1 TAB PO SCH (08:38)
[2022-05-21] MEDS: Chlorhexidine Gluconate 15 ML UDCUP SSP SCH ×2 (08:38→20:22)
[2022-05-21] MEDS: Thiamine 100 MG TAB PO SCH (08:38)
[2022-05-21] MEDS: Tamsulosin HCl 0.4 MG CAP PO SCH (08:38)
[2022-05-21] MEDS: Amlodipine 5 MG TAB PO SCH (08:38)
[2022-05-21] MEDS: Senokot S 8.6-50 MG TAB PO SCH ×2 (08:38→20:22)
[2022-05-21] MEDS: Folic Acid 1 MG TAB PO SCH (08:38)
[2022-05-21] MEDS: Melatonin 3 MG TAB PO SCH (20:22)
[2022-05-21] MEDS: Saccharomyces boulardii 250 MG CAP PO SCH (20:22)
[2022-05-22] MEDS: Acetaminophen 500 MG TAB PO SCH ×4 (00:24→17:54)
[2022-05-22] MEDS: traMADol HCl 50 MG TAB PO SCH ×4 (00:25→17:54)
[2022-05-22] MEDS: Meropenem 1 GM in Sodium Chloride 0.9% 100 ML IVPB SCH ×3 (05:46→22:10)
[2022-05-22] MEDS: Chlorhexidine Gluconate 15 ML UDCUP SSP SCH ×2 (09:11→22:09)
[2022-05-22] MEDS: Polyethylene Glycol 3350 17 GM Packet PO SCH (09:11)
[2022-05-22] MEDS: Tamsulosin HCl 0.4 MG CAP PO SCH (09:12)
[2022-05-22] MEDS: Thiamine 100 MG TAB PO SCH (09:12)
[2022-05-22] MEDS: Multivit, Therapeutic 1 TAB PO SCH (09:12)
[2022-05-22] MEDS: Senokot S 8.6-50 MG TAB PO SCH ×2 (09:12→22:10)
[2022-05-22] MEDS: Folic Acid 1 MG TAB PO SCH (09:12)
[2022-05-22] MEDS: Amlodipine 5 MG TAB PO SCH (09:13)
[2022-05-22] MEDS: Melatonin 3 MG TAB PO SCH (22:09)
[2022-05-22] MEDS: Saccharomyces boulardii 250 MG CAP PO SCH (22:09)
[2022-05-23] MEDS: Acetaminophen 500 MG TAB PO SCH ×4 (00:10→18:57)
[2022-05-23] MEDS: traMADol HCl 50 MG TAB PO SCH ×4 (00:10→18:56)
[2022-05-23] MEDS: Meropenem 1 GM in Sodium Chloride 0.9% 100 ML IVPB SCH ×3 (06:04→21:13)
[2022-05-23] MEDS ORDERED: Amlodipine 5 MG TAB ONE (08:29)
[2022-05-23] MEDS: Chlorhexidine Gluconate 15 ML UDCUP SSP SCH ×2 (08:52→21:12)
[2022-05-23] MEDS: Amlodipine 5 MG TAB PO SCH (08:53)
[2022-05-23] MEDS: Polyethylene Glycol 3350 17 GM Packet PO SCH (08:53)
[2022-05-23] MEDS: Senokot S 8.6-50 MG TAB PO SCH ×2 (08:54→21:13)
[2022-05-23] MEDS: Thiamine 100 MG TAB PO SCH (08:54)
[2022-05-23] MEDS: Multivit, Therapeutic 1 TAB PO SCH (08:54)
[2022-05-23] MEDS: Folic Acid 1 MG TAB PO SCH (08:54)
[2022-05-23] MEDS: Tamsulosin HCl 0.4 MG CAP PO SCH (08:54)
[2022-05-23] MEDS: Melatonin 3 MG TAB PO SCH (21:13)
[2022-05-23] MEDS: Saccharomyces boulardii 250 MG CAP PO SCH (21:13)
[2022-05-24] MEDS: traMADol HCl 50 MG TAB PO SCH ×5 (00:37→23:38)
[2022-05-24] MEDS: Acetaminophen 500 MG TAB PO SCH ×5 (00:38→23:37)
[2022-05-24] MEDS: Meropenem 1 GM in Sodium Chloride 0.9% 100 ML IVPB SCH ×3 (05:35→21:02)
[2022-05-24 06:01] LABS: CRP (Inflammatory) Less than 0.50 mg/dL (= or < 0.5)
[2022-05-24 06:38] LABS: Mean Corpuscular HGB CONC 33.5 g/dL (32.0-36.0); RBC Distribution Width 11.9 % (11.5-14.5)
[2022-05-24] MEDS: Chlorhexidine Gluconate 15 ML UDCUP SSP SCH ×2 (08:34→20:42)
[2022-05-24] MEDS: Polyethylene Glycol 3350 17 GM Packet PO SCH (08:34)
[2022-05-24] MEDS: Amlodipine 5 MG TAB PO SCH (08:35)
[2022-05-24] MEDS: Senokot S 8.6-50 MG TAB PO SCH ×2 (08:35→20:43)
[2022-05-24] MEDS: Folic Acid 1 MG TAB PO SCH (08:35)
[2022-05-24] MEDS: Multivit, Therapeutic 1 TAB PO SCH (08:35)
[2022-05-24] MEDS: Tamsulosin HCl 0.4 MG CAP PO SCH (08:36)
[2022-05-24] MEDS: Thiamine 100 MG TAB PO SCH (08:36)
[2022-05-24 10:45] LABS: #Basophils 0.1 thou/uL (0.0-0.2); #Eosinphils 0.2 thou/uL (0.0-0.7); #Monocytes 0.7 thou/uL (0.11-0.59); %Basophils 0.6 % (0.0-1.0); %Lymphocytes 19.8 % (21.0-51.0); %Monocytes 7.1 % (0.0-10.0); %Neutrophils 70.4 % (42.0-75.0); Hemoglobin 11.5 g/dL (14.0-18.0); Mean Corpuscular Hemoglobin 31.1 pg (27.0-31.0); Mean Corpuscular Volume 92.9 fl (78.0-98.0); Mean Platelet Volume 7.6 fL (7.4-10.4); Platelet Count 373 10x3/uL (130-400); Red Blood Cell (RBC) Count 3.69 mill/uL (4.70-6.10)
[2022-05-24 10:57] LABS: ALT (SGPT) 13 U/L (8-55); AST (SGOT) 18 U/L (5-34); Albumin 3.3 g/dL (3.4-4.8); Alkaline Phosphatase 127 U/L (40-110); Anion Gap 13 mmol/L (10-20); BUN (Urea Nitrogen) 12 mg/dL (8.4-25.7); Bilirubin, Total 0.3 mg/dL (0.2-1.2); Calc. Creatinine Clearance 76 mL/min (70-130); Calcium 9.2 mg/dL (7.8-10.44); Carbon Dioxide 28 mmol/L (23-31); Chloride 98 mmol/L (98-107); Estimated GFR 102; Globulin 3.6 g/dL (2.4-3.5); Glucose 85 mg/dL (83-110); Potassium 4.1 mmol/L (3.5-5.1); Protein, Total 6.9 g/dL (5.8-8.1); Sodium 135 mmol/L (136-145)
[2022-05-24] MEDS: Melatonin 3 MG TAB PO SCH (20:43)
[2022-05-24] MEDS: Saccharomyces boulardii 250 MG CAP PO SCH (20:43)
[2022-05-25] MEDS: Acetaminophen 500 MG TAB PO SCH ×3 (05:52→17:09)
[2022-05-25] MEDS: Meropenem 1 GM in Sodium Chloride 0.9% 100 ML IVPB SCH ×3 (05:52→21:54)
[2022-05-25] MEDS: traMADol HCl 50 MG TAB PO SCH ×3 (05:53→17:10)
[2022-05-25] MEDS: Polyethylene Glycol 3350 17 GM Packet PO SCH (08:47)
[2022-05-25] MEDS: Multivit, Therapeutic 1 TAB PO SCH (08:47)
[2022-05-25] MEDS: Amlodipine 5 MG TAB PO SCH (08:48)
[2022-05-25] MEDS: Thiamine 100 MG TAB PO SCH (08:48)
[2022-05-25] MEDS: Senokot S 8.6-50 MG TAB PO SCH ×2 (08:48→21:28)
[2022-05-25] MEDS: Folic Acid 1 MG TAB PO SCH (08:48)
[2022-05-25] MEDS: Tamsulosin HCl 0.4 MG CAP PO SCH (08:48)
[2022-05-25] MEDS: Chlorhexidine Gluconate 15 ML UDCUP SSP SCH ×2 (08:56→21:29)
[2022-05-25] MEDS: Saccharomyces boulardii 250 MG CAP PO SCH (21:28)
[2022-05-25] MEDS: Melatonin 3 MG TAB PO SCH (21:28)
[2022-05-26] MEDS: Acetaminophen 500 MG TAB PO SCH ×4 (00:22→18:23)
[2022-05-26] MEDS: traMADol HCl 50 MG TAB PO SCH ×4 (00:22→18:23)
[2022-05-26] MEDS: Meropenem 1 GM in Sodium Chloride 0.9% 100 ML IVPB SCH ×3 (05:51→22:37)
[2022-05-26] MEDS: Folic Acid 1 MG TAB PO SCH (09:41)
[2022-05-26] MEDS: Senokot S 8.6-50 MG TAB PO SCH ×2 (09:41→22:37)
[2022-05-26] MEDS: Tamsulosin HCl 0.4 MG CAP PO SCH (09:41)
[2022-05-26] MEDS: Multivit, Therapeutic 1 TAB PO SCH (09:41)
[2022-05-26] MEDS: Amlodipine 5 MG TAB PO SCH (09:42)
[2022-05-26] MEDS: Thiamine 100 MG TAB PO SCH (09:42)
[2022-05-26] MEDS: Chlorhexidine Gluconate 15 ML UDCUP SSP SCH ×2 (09:42→22:37)
[2022-05-26] MEDS: Polyethylene Glycol 3350 17 GM Packet PO SCH (09:42)
[2022-05-26] MEDS: Melatonin 3 MG TAB PO SCH (22:38)
[2022-05-26] MEDS: Saccharomyces boulardii 250 MG CAP PO SCH (22:38)
[2022-05-27] MEDS: traMADol HCl 50 MG TAB PO SCH ×4 (00:25→17:44)
[2022-05-27] MEDS: Acetaminophen 500 MG TAB PO SCH ×4 (00:26→17:45)
[2022-05-27] MEDS: Meropenem 1 GM in Sodium Chloride 0.9% 100 ML IVPB SCH ×3 (05:20→21:45)
[2022-05-27] MEDS: Polyethylene Glycol 3350 17 GM Packet PO SCH (08:38)
[2022-05-27] MEDS: Chlorhexidine Gluconate 15 ML UDCUP SSP SCH ×2 (08:39→21:45)
[2022-05-27] MEDS: Tamsulosin HCl 0.4 MG CAP PO SCH (08:39)
[2022-05-27] MEDS: Amlodipine 5 MG TAB PO SCH (08:39)
[2022-05-27] MEDS: Thiamine 100 MG TAB PO SCH (08:39)
[2022-05-27] MEDS: Senokot S 8.6-50 MG TAB PO SCH ×2 (08:40→21:45)
[2022-05-27] MEDS: Multivit, Therapeutic 1 TAB PO SCH (08:40)
[2022-05-27] MEDS: Folic Acid 1 MG TAB PO SCH (08:40)
[2022-05-27] MEDS: Saccharomyces boulardii 250 MG CAP PO SCH (21:45)
[2022-05-27] MEDS: Melatonin 3 MG TAB PO SCH (21:45)
[2022-05-28] MEDS: Acetaminophen 500 MG TAB PO SCH ×4 (00:22→17:53)
[2022-05-28] MEDS: traMADol HCl 50 MG TAB PO SCH ×4 (00:23→17:54)
[2022-05-28] MEDS: Meropenem 1 GM in Sodium Chloride 0.9% 100 ML IVPB SCH ×3 (05:45→21:11)
[2022-05-28] MEDS: Polyethylene Glycol 3350 17 GM Packet PO SCH (08:50)
[2022-05-28] MEDS: Chlorhexidine Gluconate 15 ML UDCUP SSP SCH ×2 (08:50→21:11)
[2022-05-28] MEDS: Folic Acid 1 MG TAB PO SCH (08:51)
[2022-05-28] MEDS: Tamsulosin HCl 0.4 MG CAP PO SCH (08:51)
[2022-05-28] MEDS: Senokot S 8.6-50 MG TAB PO SCH ×2 (08:51→21:11)
[2022-05-28] MEDS: Multivit, Therapeutic 1 TAB PO SCH (08:51)
[2022-05-28] MEDS: Thiamine 100 MG TAB PO SCH (08:51)
[2022-05-28] MEDS: Amlodipine 5 MG TAB PO SCH (08:52)
[2022-05-28] MEDS: Melatonin 3 MG TAB PO SCH (21:11)
[2022-05-28] MEDS: Saccharomyces boulardii 250 MG CAP PO SCH (21:11)
[2022-05-29] MEDS: traMADol HCl 50 MG TAB PO SCH ×4 (00:13→18:00)
[2022-05-29] MEDS: Acetaminophen 500 MG TAB PO SCH ×4 (00:14→17:59)
[2022-05-29] MEDS: Meropenem 1 GM in Sodium Chloride 0.9% 100 ML IVPB SCH ×3 (05:34→21:37)
[2022-05-29] MEDS: Senokot S 8.6-50 MG TAB PO SCH ×2 (08:31→21:37)
[2022-05-29] MEDS: Thiamine 100 MG TAB PO SCH (08:31)
[2022-05-29] MEDS: Multivit, Therapeutic 1 TAB PO SCH (08:31)
[2022-05-29] MEDS: Tamsulosin HCl 0.4 MG CAP PO SCH (08:31)
[2022-05-29] MEDS: Chlorhexidine Gluconate 15 ML UDCUP SSP SCH ×2 (08:32→21:37)
[2022-05-29] MEDS: Amlodipine 5 MG TAB PO SCH (08:32)
[2022-05-29] MEDS: Folic Acid 1 MG TAB PO SCH (08:32)
[2022-05-29] MEDS: Polyethylene Glycol 3350 17 GM Packet PO SCH (08:32)
[2022-05-29] MEDS: Saccharomyces boulardii 250 MG CAP PO SCH (21:37)
[2022-05-29] MEDS: Melatonin 3 MG TAB PO SCH (21:37)
[2022-05-30] MEDS: Acetaminophen 500 MG TAB PO SCH ×4 (00:11→18:21)
[2022-05-30] MEDS: traMADol HCl 50 MG TAB PO SCH ×4 (00:12→18:20)
[2022-05-30] MEDS: Meropenem 1 GM in Sodium Chloride 0.9% 100 ML IVPB SCH ×3 (05:18→21:41)
[2022-05-30] MEDS: Chlorhexidine Gluconate 15 ML UDCUP SSP SCH ×2 (08:47→21:03)
[2022-05-30] MEDS: Polyethylene Glycol 3350 17 GM Packet PO SCH (08:47)
[2022-05-30] MEDS: Folic Acid 1 MG TAB PO SCH (08:48)
[2022-05-30] MEDS: Thiamine 100 MG TAB PO SCH (08:48)
[2022-05-30] MEDS: Tamsulosin HCl 0.4 MG CAP PO SCH (08:48)
[2022-05-30] MEDS: Amlodipine 5 MG TAB PO SCH (08:49)
[2022-05-30] MEDS: Senokot S 8.6-50 MG TAB PO SCH ×2 (08:49→21:03)
[2022-05-30] MEDS: Multivit, Therapeutic 1 TAB PO SCH (08:49)
[2022-05-30] MEDS: Melatonin 3 MG TAB PO SCH (21:03)
[2022-05-30] MEDS: Saccharomyces boulardii 250 MG CAP PO SCH (21:03)
[2022-05-31] MEDS: traMADol HCl 50 MG TAB PO SCH ×4 (00:15→17:45)
[2022-05-31] MEDS: Acetaminophen 500 MG TAB PO SCH ×4 (00:15→17:46)
[2022-05-31] MEDS: Meropenem 1 GM in Sodium Chloride 0.9% 100 ML IVPB SCH ×3 (05:31→21:00)
[2022-05-31 05:44] LABS: ALT (SGPT) 43 U/L (8-55); AST (SGOT) 38 U/L (5-34); Albumin 3.3 g/dL (3.4-4.8); Alkaline Phosphatase 124 U/L (40-110); Anion Gap 11 mmol/L (10-20); BUN (Urea Nitrogen) 24 mg/dL (8.4-25.7); Bilirubin, Total 0.3 mg/dL (0.2-1.2); CRP (Inflammatory) Less than 0.50 mg/dL (= or < 0.5); Calc. Creatinine Clearance 83 mL/min (70-130); Calcium 9.2 mg/dL (7.8-10.44); Carbon Dioxide 25 mmol/L (23-31); Chloride 102 mmol/L (98-107); Estimated GFR 102; Globulin 3.2 g/dL (2.4-3.5); Glucose 87 mg/dL (83-110); Potassium 4.3 mmol/L (3.5-5.1); Protein, Total 6.5 g/dL (5.8-8.1); Sodium 134 mmol/L (136-145)
[2022-05-31 05:45] LABS: Eosinophils 4 % (0-10); Lymphocytes 28 % (21-51); MDiff Complete? YES; Mean Corpuscular HGB CONC 34.8 g/dL (32.0-36.0); Mean Corpuscular Hemoglobin 31.3 pg (27.0-31.0); Mean Platelet Volume 7.1 fL (7.4-10.4); Monocytes 10 % (0-10); Neutrophil 57 % (42-75); Platelet Count 392 10x3/uL (130-400); RBC Distribution Width 12.2 % (11.5-14.5); Red Blood Cell (RBC) Count 3.19 mill/uL (4.70-6.10); White Blood Cell (WBC) Count 9.7 10x3/uL (4.8-10.8)
[2022-05-31] MEDS: Polyethylene Glycol 3350 17 GM Packet PO SCH (08:16)
[2022-05-31] MEDS: Chlorhexidine Gluconate 15 ML UDCUP SSP SCH ×2 (08:17→20:59)
[2022-05-31] MEDS: Amlodipine 5 MG TAB PO SCH (08:21)
[2022-05-31] MEDS: Multivit, Therapeutic 1 TAB PO SCH (08:21)
[2022-05-31] MEDS: Folic Acid 1 MG TAB PO SCH (08:21)
[2022-05-31] MEDS: Tamsulosin HCl 0.4 MG CAP PO SCH (08:21)
[2022-05-31] MEDS: Senokot S 8.6-50 MG TAB PO SCH ×2 (08:21→20:59)
[2022-05-31] MEDS: Thiamine 100 MG TAB PO SCH (08:21)
[2022-05-31] MEDS: Saccharomyces boulardii 250 MG CAP PO SCH (20:59)
[2022-05-31] MEDS: Melatonin 3 MG TAB PO SCH (20:59)
[2022-06-01] MEDS: traMADol HCl 50 MG TAB PO SCH ×4 (00:21→17:23)
[2022-06-01] MEDS: Acetaminophen 500 MG TAB PO SCH ×4 (00:21→17:22)
[2022-06-01] MEDS: Meropenem 1 GM in Sodium Chloride 0.9% 100 ML IVPB SCH ×3 (05:17→21:23)
[2022-06-01] MEDS: Senokot S 8.6-50 MG TAB PO SCH ×2 (09:20→21:23)
[2022-06-01] MEDS: Folic Acid 1 MG TAB PO SCH (09:20)
[2022-06-01] MEDS: Multivit, Therapeutic 1 TAB PO SCH (09:20)
[2022-06-01] MEDS: Polyethylene Glycol 3350 17 GM Packet PO SCH (09:21)
[2022-06-01] MEDS: Thiamine 100 MG TAB PO SCH (09:21)
[2022-06-01] MEDS: Amlodipine 5 MG TAB PO SCH (09:21)
[2022-06-01] MEDS: Tamsulosin HCl 0.4 MG CAP PO SCH (09:24)
[2022-06-01] MEDS: Chlorhexidine Gluconate 15 ML UDCUP SSP SCH ×2 (09:27→21:22)
[2022-06-01] MEDS: Melatonin 3 MG TAB PO SCH (21:23)
[2022-06-01] MEDS: Saccharomyces boulardii 250 MG CAP PO SCH (21:23)
[2022-06-02] MEDS: Acetaminophen 500 MG TAB PO SCH ×4 (00:20→18:07)
[2022-06-02] MEDS: traMADol HCl 50 MG TAB PO SCH ×4 (00:20→18:06)
[2022-06-02] MEDS: Meropenem 1 GM in Sodium Chloride 0.9% 100 ML IVPB SCH ×3 (05:16→22:04)
[2022-06-02] MEDS: Chlorhexidine Gluconate 15 ML UDCUP SSP SCH ×2 (08:10→20:22)
[2022-06-02] MEDS: Senokot S 8.6-50 MG TAB PO SCH ×2 (08:11→20:23)
[2022-06-02] MEDS: Tamsulosin HCl 0.4 MG CAP PO SCH (08:11)
[2022-06-02] MEDS: Thiamine 100 MG TAB PO SCH (08:11)
[2022-06-02] MEDS: Polyethylene Glycol 3350 17 GM Packet PO SCH (08:11)
[2022-06-02] MEDS: Folic Acid 1 MG TAB PO SCH (08:11)
[2022-06-02] MEDS: Multivit, Therapeutic 1 TAB PO SCH (08:12)
[2022-06-02] MEDS: Amlodipine 5 MG TAB PO SCH (08:12)
[2022-06-02] MEDS: Saccharomyces boulardii 250 MG CAP PO SCH (20:23)
[2022-06-02] MEDS: Melatonin 3 MG TAB PO SCH (20:23)
[2022-06-03] MEDS: traMADol HCl 50 MG TAB PO SCH ×4 (00:02→18:16)
[2022-06-03] MEDS: Acetaminophen 500 MG TAB PO SCH ×4 (06:00→18:15)
[2022-06-03] MEDS: Meropenem 1 GM in Sodium Chloride 0.9% 100 ML IVPB SCH ×3 (06:01→21:15)
[2022-06-03] MEDS: Polyethylene Glycol 3350 17 GM Packet PO SCH (08:51)
[2022-06-03] MEDS: Chlorhexidine Gluconate 15 ML UDCUP SSP SCH ×2 (08:51→20:05)
[2022-06-03] MEDS: Folic Acid 1 MG TAB PO SCH (08:52)
[2022-06-03] MEDS: Tamsulosin HCl 0.4 MG CAP PO SCH (08:52)
[2022-06-03] MEDS: Senokot S 8.6-50 MG TAB PO SCH ×2 (08:52→20:05)
[2022-06-03] MEDS: Amlodipine 5 MG TAB PO SCH (08:52)
[2022-06-03] MEDS: Multivit, Therapeutic 1 TAB PO SCH (08:52)
[2022-06-03] MEDS: Thiamine 100 MG TAB PO SCH (08:52)
[2022-06-03] MEDS: Saccharomyces boulardii 250 MG CAP PO SCH (20:05)
[2022-06-03] MEDS: Melatonin 3 MG TAB PO SCH (21:15)
[2022-06-04] MEDS: traMADol HCl 50 MG TAB PO SCH ×5 (00:08→23:55)
[2022-06-04] MEDS: Acetaminophen 500 MG TAB PO SCH ×5 (00:09→23:55)
[2022-06-04] MEDS: Meropenem 1 GM in Sodium Chloride 0.9% 100 ML IVPB SCH ×3 (05:39→21:40)
[2022-06-04] MEDS: Chlorhexidine Gluconate 15 ML UDCUP SSP SCH ×2 (08:38→21:44)
[2022-06-04] MEDS: Multivit, Therapeutic 1 TAB PO SCH (08:39)
[2022-06-04] MEDS: Senokot S 8.6-50 MG TAB PO SCH ×2 (08:39→21:43)
[2022-06-04] MEDS: Thiamine 100 MG TAB PO SCH (08:39)
[2022-06-04] MEDS: Polyethylene Glycol 3350 17 GM Packet PO SCH (08:39)
[2022-06-04] MEDS: Folic Acid 1 MG TAB PO SCH (08:39)
[2022-06-04] MEDS: Amlodipine 5 MG TAB PO SCH (08:40)
[2022-06-04] MEDS: Tamsulosin HCl 0.4 MG CAP PO SCH (08:40)
[2022-06-04] MEDS: Melatonin 3 MG TAB PO SCH (21:42)
[2022-06-04] MEDS: Saccharomyces boulardii 250 MG CAP PO SCH (21:43)
[2022-06-05] MEDS: Meropenem 1 GM in Sodium Chloride 0.9% 100 ML IVPB SCH ×3 (06:10→21:24)
[2022-06-05] MEDS: traMADol HCl 50 MG TAB PO SCH ×3 (06:20→17:51)
[2022-06-05] MEDS: Acetaminophen 500 MG TAB PO SCH ×3 (06:21→17:52)
[2022-06-05] MEDS: Amlodipine 5 MG TAB PO SCH (08:57)
[2022-06-05] MEDS: Tamsulosin HCl 0.4 MG CAP PO SCH (08:57)
[2022-06-05] MEDS: Chlorhexidine Gluconate 15 ML UDCUP SSP SCH ×2 (08:57→21:26)
[2022-06-05] MEDS: Polyethylene Glycol 3350 17 GM Packet PO SCH (08:57)
[2022-06-05] MEDS: Thiamine 100 MG TAB PO SCH (08:57)
[2022-06-05] MEDS: Multivit, Therapeutic 1 TAB PO SCH (08:58)
[2022-06-05] MEDS: Folic Acid 1 MG TAB PO SCH (08:58)
[2022-06-05] MEDS: Senokot S 8.6-50 MG TAB PO SCH ×2 (08:58→21:25)
[2022-06-05] MEDS: Melatonin 3 MG TAB PO SCH (21:25)
[2022-06-05] MEDS: Saccharomyces boulardii 250 MG CAP PO SCH (21:25)
[2022-06-06] MEDS: Acetaminophen 500 MG TAB PO SCH ×4 (00:23→17:33)
[2022-06-06] MEDS: traMADol HCl 50 MG TAB PO SCH ×4 (00:24→17:31)
[2022-06-06] MEDS: Meropenem 1 GM in Sodium Chloride 0.9% 100 ML IVPB SCH ×3 (05:48→21:55)
[2022-06-06] MEDS: Chlorhexidine Gluconate 15 ML UDCUP SSP SCH ×2 (09:17→21:56)
[2022-06-06] MEDS: Tamsulosin HCl 0.4 MG CAP PO SCH (09:17)
[2022-06-06] MEDS: Senokot S 8.6-50 MG TAB PO SCH ×2 (09:17→21:56)
[2022-06-06] MEDS: Polyethylene Glycol 3350 17 GM Packet PO SCH (09:17)
[2022-06-06] MEDS: Multivit, Therapeutic 1 TAB PO SCH (09:18)
[2022-06-06] MEDS: Folic Acid 1 MG TAB PO SCH (09:18)
[2022-06-06] MEDS: Amlodipine 5 MG TAB PO SCH (09:18)
[2022-06-06] MEDS: Thiamine 100 MG TAB PO SCH (09:18)
[2022-06-06] MEDS: Melatonin 3 MG TAB PO SCH (21:56)
[2022-06-06] MEDS: Saccharomyces boulardii 250 MG CAP PO SCH (21:56)
[2022-06-07] MEDS: Acetaminophen 500 MG TAB PO SCH ×5 (00:22→23:54)
[2022-06-07] MEDS: traMADol HCl 50 MG TAB PO SCH ×5 (00:23→23:55)
[2022-06-07 05:32] LABS: #Basophils 0.1 thou/uL (0.0-0.2); #Eosinphils 0.2 thou/uL (0.0-0.7); #Lymphocytes 2.3 thou/uL (1.20-3.40); #Monocytes 0.5 thou/uL (0.11-0.59); #Neutrophils 3.2 thou/uL (1.40-6.50); %Basophils 1.3 % (0.0-1.0); %Eosinophils 3.7 % (0.0-10.0); %Lymphocytes 36.7 % (21.0-51.0); %Monocytes 7.8 % (0.0-10.0); %Neutrophils 50.4 % (42.0-75.0); Hemoglobin 8.9 g/dL (14.0-18.0); Mean Corpuscular Hemoglobin 31.2 pg (27.0-31.0); Mean Corpuscular Volume 91.6 fl (78.0-98.0); Platelet Count 246 10x3/uL (130-400); RBC Distribution Width 12.3 % (11.5-14.5); Red Blood Cell (RBC) Count 2.85 mill/uL (4.70-6.10); White Blood Cell (WBC) Count 6.3 10x3/uL (4.8-10.8)
[2022-06-07] MEDS: Meropenem 1 GM in Sodium Chloride 0.9% 100 ML IVPB SCH ×3 (06:01→21:17)
[2022-06-07 06:17] LABS: ALT (SGPT) 64 U/L (8-55); AST (SGOT) 39 U/L (5-34); Albumin 3.5 g/dL (3.4-4.8); Alkaline Phosphatase 121 U/L (40-110); Anion Gap 12 mmol/L (10-20); BUN (Urea Nitrogen) 11 mg/dL (8.4-25.7); Bilirubin, Total 0.4 mg/dL (0.2-1.2); CRP (Inflammatory) Less than 0.50 mg/dL (= or < 0.5); Calc. Creatinine Clearance 81 mL/min (70-130); Calcium 9.1 mg/dL (7.8-10.44); Carbon Dioxide 24 mmol/L (23-31); Chloride 103 mmol/L (98-107); Estimated GFR 101; Globulin 3.1 g/dL (2.4-3.5); Glucose 87 mg/dL (83-110); Potassium 4.2 mmol/L (3.5-5.1); Protein, Total 6.6 g/dL (5.8-8.1); Sodium 135 mmol/L (136-145)
[2022-06-07] MEDS: Folic Acid 1 MG TAB PO SCH (08:36)
[2022-06-07] MEDS: Polyethylene Glycol 3350 17 GM Packet PO SCH (08:36)
[2022-06-07] MEDS: Thiamine 100 MG TAB PO SCH (08:36)
[2022-06-07] MEDS: Amlodipine 5 MG TAB PO SCH (08:36)
[2022-06-07] MEDS: Multivit, Therapeutic 1 TAB PO SCH (08:36)
[2022-06-07] MEDS: Senokot S 8.6-50 MG TAB PO SCH ×2 (08:36→21:17)
[2022-06-07] MEDS: Chlorhexidine Gluconate 15 ML UDCUP SSP SCH ×2 (08:36→21:17)
[2022-06-07] MEDS: Tamsulosin HCl 0.4 MG CAP PO SCH (08:36)
[2022-06-07] MEDS: Melatonin 3 MG TAB PO SCH (21:17)
[2022-06-07] MEDS: Saccharomyces boulardii 250 MG CAP PO SCH (21:17)
[2022-06-08] MEDS: Meropenem 1 GM in Sodium Chloride 0.9% 100 ML IVPB SCH ×3 (06:00→21:10)
[2022-06-08] MEDS: traMADol HCl 50 MG TAB PO SCH ×4 (06:03→23:29)
[2022-06-08] MEDS: Acetaminophen 500 MG TAB PO SCH ×4 (06:03→23:29)
[2022-06-08] MEDS: Amlodipine 5 MG TAB PO SCH (08:22)
[2022-06-08] MEDS: Tamsulosin HCl 0.4 MG CAP PO SCH (08:22)
[2022-06-08] MEDS: Multivit, Therapeutic 1 TAB PO SCH (08:22)
[2022-06-08] MEDS: Folic Acid 1 MG TAB PO SCH (08:22)
[2022-06-08] MEDS: Senokot S 8.6-50 MG TAB PO SCH ×2 (08:22→21:12)
[2022-06-08] MEDS: Thiamine 100 MG TAB PO SCH (08:22)
[2022-06-08] MEDS: Chlorhexidine Gluconate 15 ML UDCUP SSP SCH ×2 (08:25→21:11)
[2022-06-08] MEDS: Polyethylene Glycol 3350 17 GM Packet PO SCH (08:25)
[2022-06-08] MEDS: Melatonin 3 MG TAB PO SCH (21:12)
[2022-06-08] MEDS: Saccharomyces boulardii 250 MG CAP PO SCH (21:12)
[2022-06-09] MEDS: Acetaminophen 500 MG TAB PO SCH ×4 (05:43→23:38)
[2022-06-09] MEDS: Meropenem 1 GM in Sodium Chloride 0.9% 100 ML IVPB SCH ×3 (05:43→22:19)
[2022-06-09] MEDS: traMADol HCl 50 MG TAB PO SCH ×4 (05:44→23:36)
[2022-06-09] MEDS: Chlorhexidine Gluconate 15 ML UDCUP SSP SCH ×2 (08:48→20:14)
[2022-06-09] MEDS: Tamsulosin HCl 0.4 MG CAP PO SCH (08:49)
[2022-06-09] MEDS: Multivit, Therapeutic 1 TAB PO SCH (08:49)
[2022-06-09] MEDS: Polyethylene Glycol 3350 17 GM Packet PO SCH (08:50)
[2022-06-09] MEDS: Thiamine 100 MG TAB PO SCH (08:50)
[2022-06-09] MEDS: Senokot S 8.6-50 MG TAB PO SCH ×2 (08:50→20:15)
[2022-06-09] MEDS: Folic Acid 1 MG TAB PO SCH (08:50)
[2022-06-09] MEDS: Amlodipine 5 MG TAB PO SCH (08:50)
[2022-06-09] MEDS: Saccharomyces boulardii 250 MG CAP PO SCH (20:15)
[2022-06-09] MEDS: Melatonin 3 MG TAB PO SCH (20:16)
[2022-06-10] MEDS: Acetaminophen 500 MG TAB PO SCH ×3 (06:02→18:07)
[2022-06-10] MEDS: traMADol HCl 50 MG TAB PO SCH ×3 (06:03→18:08)
[2022-06-10] MEDS: Meropenem 1 GM in Sodium Chloride 0.9% 100 ML IVPB SCH ×3 (06:14→21:14)
[2022-06-10] MEDS: Amlodipine 5 MG TAB PO SCH (08:18)
[2022-06-10] MEDS: Tamsulosin HCl 0.4 MG CAP PO SCH (08:18)
[2022-06-10] MEDS: Thiamine 100 MG TAB PO SCH (08:18)
[2022-06-10] MEDS: Chlorhexidine Gluconate 15 ML UDCUP SSP SCH ×2 (08:18→21:14)
[2022-06-10] MEDS: Senokot S 8.6-50 MG TAB PO SCH ×2 (08:18→21:15)
[2022-06-10] MEDS: Multivit, Therapeutic 1 TAB PO SCH (08:18)
[2022-06-10] MEDS: Folic Acid 1 MG TAB PO SCH (08:18)
[2022-06-10] MEDS: Polyethylene Glycol 3350 17 GM Packet PO SCH (08:19)
[2022-06-10] MEDS: Melatonin 3 MG TAB PO SCH (21:15)
[2022-06-10] MEDS: Saccharomyces boulardii 250 MG CAP PO SCH (21:15)
[2022-06-11] MEDS: Acetaminophen 500 MG TAB PO SCH ×4 (00:14→17:55)
[2022-06-11] MEDS: traMADol HCl 50 MG TAB PO SCH ×4 (00:15→17:57)
[2022-06-11] MEDS: Meropenem 1 GM in Sodium Chloride 0.9% 100 ML IVPB SCH ×3 (05:57→21:28)
[2022-06-11] MEDS: Polyethylene Glycol 3350 17 GM Packet PO SCH (08:34)
[2022-06-11] MEDS: Amlodipine 5 MG TAB PO SCH (08:34)
[2022-06-11] MEDS: Chlorhexidine Gluconate 15 ML UDCUP SSP SCH ×2 (08:34→21:28)
[2022-06-11] MEDS: Folic Acid 1 MG TAB PO SCH (08:35)
[2022-06-11] MEDS: Multivit, Therapeutic 1 TAB PO SCH (08:35)
[2022-06-11] MEDS: Tamsulosin HCl 0.4 MG CAP PO SCH (08:35)
[2022-06-11] MEDS: Senokot S 8.6-50 MG TAB PO SCH ×2 (08:35→21:28)
[2022-06-11] MEDS: Thiamine 100 MG TAB PO SCH (08:35)
[2022-06-11] MEDS: Melatonin 3 MG TAB PO SCH (21:27)
[2022-06-11] MEDS: Saccharomyces boulardii 250 MG CAP PO SCH (21:27)
[2022-06-12] MEDS: Acetaminophen 500 MG TAB PO SCH ×5 (00:19→23:59)
[2022-06-12] MEDS: traMADol HCl 50 MG TAB PO SCH ×4 (00:20→18:12)
[2022-06-12] MEDS: Meropenem 1 GM in Sodium Chloride 0.9% 100 ML IVPB SCH ×3 (06:10→21:12)
[2022-06-12] MEDS: Folic Acid 1 MG TAB PO SCH (08:22)
[2022-06-12] MEDS: Amlodipine 5 MG TAB PO SCH (08:22)
[2022-06-12] MEDS: Multivit, Therapeutic 1 TAB PO SCH (08:22)
[2022-06-12] MEDS: Tamsulosin HCl 0.4 MG CAP PO SCH (08:22)
[2022-06-12] MEDS: Thiamine 100 MG TAB PO SCH (08:22)
[2022-06-12] MEDS: Chlorhexidine Gluconate 15 ML UDCUP SSP SCH ×2 (08:25→21:11)
[2022-06-12] MEDS: Senokot S 8.6-50 MG TAB PO SCH ×2 (13:20→21:12)
[2022-06-12] MEDS: Polyethylene Glycol 3350 17 GM Packet PO SCH (13:21)
[2022-06-12] MEDS: Saccharomyces boulardii 250 MG CAP PO SCH (21:11)
[2022-06-12] MEDS: Melatonin 3 MG TAB PO SCH (21:11)
[2022-06-13] MEDS: Meropenem 1 GM in Sodium Chloride 0.9% 100 ML IVPB SCH ×3 (05:54→21:39)
[2022-06-13] MEDS: Acetaminophen 500 MG TAB PO SCH ×3 (05:57→18:17)
[2022-06-13] MEDS: traMADol HCl 50 MG TAB PO SCH ×4 (05:58→18:18)
[2022-06-13] MEDS: Chlorhexidine Gluconate 15 ML UDCUP SSP SCH ×2 (08:46→21:39)
[2022-06-13] MEDS: Polyethylene Glycol 3350 17 GM Packet PO SCH (08:46)
[2022-06-13] MEDS: Tamsulosin HCl 0.4 MG CAP PO SCH (08:47)
[2022-06-13] MEDS: Multivit, Therapeutic 1 TAB PO SCH (08:47)
[2022-06-13] MEDS: Thiamine 100 MG TAB PO SCH (08:47)
[2022-06-13] MEDS: Amlodipine 5 MG TAB PO SCH (08:47)
[2022-06-13] MEDS: Folic Acid 1 MG TAB PO SCH (08:47)
[2022-06-13] MEDS: Senokot S 8.6-50 MG TAB PO SCH ×2 (08:47→21:39)
[2022-06-13] MEDS: Melatonin 3 MG TAB PO SCH (21:39)
[2022-06-13] MEDS: Saccharomyces boulardii 250 MG CAP PO SCH (21:39)
[2022-06-14] MEDS: Acetaminophen 500 MG TAB PO SCH ×5 (00:14→23:50)
[2022-06-14] MEDS: traMADol HCl 50 MG TAB PO SCH ×5 (00:14→23:51)
[2022-06-14 05:51] LABS: Hemoglobin 10.9 g/dL (14.0-18.0); Mean Corpuscular HGB CONC 33.9 g/dL (32.0-36.0); Mean Corpuscular Hemoglobin 30.8 pg (27.0-31.0); Mean Corpuscular Volume 90.9 fl (78.0-98.0); Platelet Count 312 10x3/uL (130-400); RBC Distribution Width 12.5 % (11.5-14.5); Red Blood Cell (RBC) Count 3.53 mill/uL (4.70-6.10); White Blood Cell (WBC) Count 7.2 10x3/uL (4.8-10.8)
[2022-06-14 05:56] LABS: ALT (SGPT) 71 U/L (8-55); AST (SGOT) 46 U/L (5-34); Albumin 3.8 g/dL (3.4-4.8); Alkaline Phosphatase 130 U/L (40-110); Anion Gap 12 mmol/L (10-20); BUN (Urea Nitrogen) 13 mg/dL (8.4-25.7); Bilirubin, Total 0.4 mg/dL (0.2-1.2); CRP (Inflammatory) Less than 0.50 mg/dL (= or < 0.5); Calc. Creatinine Clearance 79 mL/min (70-130); Calcium 9.4 mg/dL (7.8-10.44); Carbon Dioxide 26 mmol/L (23-31); Chloride 102 mmol/L (98-107); Estimated GFR 100; Globulin 3.4 g/dL (2.4-3.5); Glucose 93 mg/dL (83-110); Potassium 4.8 mmol/L (3.5-5.1); Protein, Total 7.2 g/dL (5.8-8.1); Sodium 135 mmol/L (136-145)
[2022-06-14] MEDS: Meropenem 1 GM in Sodium Chloride 0.9% 100 ML IVPB SCH ×3 (06:33→21:42)
[2022-06-14 07:40] LABS: Eosinophils 5 % (0-10); Lymphocytes 25 % (21-51); MDiff Complete? YES; Monocytes 10 % (0-10); Neutrophil 60 % (42-75); Platelet Morphology Comment Appears Adequate; RBC Morphology Normal
[2022-06-14] MEDS: Multivit, Therapeutic 1 TAB PO SCH (08:52)
[2022-06-14] MEDS: Polyethylene Glycol 3350 17 GM Packet PO SCH (08:52)
[2022-06-14] MEDS: Thiamine 100 MG TAB PO SCH (08:52)
[2022-06-14] MEDS: Amlodipine 5 MG TAB PO SCH (08:52)
[2022-06-14] MEDS: Losartan 25 MG TAB PO SCH (08:52)
[2022-06-14] MEDS: Chlorhexidine Gluconate 15 ML UDCUP SSP SCH ×2 (08:52→21:42)
[2022-06-14] MEDS: Folic Acid 1 MG TAB PO SCH (08:52)
[2022-06-14] MEDS: Senokot S 8.6-50 MG TAB PO SCH ×2 (08:55→21:42)
[2022-06-14] MEDS: Tamsulosin HCl 0.4 MG CAP PO SCH (08:55)
[2022-06-14 12:06] VITALS: BMI 15.7
[2022-06-14] MEDS: Saccharomyces boulardii 250 MG CAP PO SCH (21:42)
[2022-06-14] MEDS: Melatonin 3 MG TAB PO SCH (21:42)
[2022-06-15] MEDS: Meropenem 1 GM in Sodium Chloride 0.9% 100 ML IVPB SCH ×3 (06:28→21:18)
[2022-06-15] MEDS: traMADol HCl 50 MG TAB PO SCH ×3 (06:32→18:05)
[2022-06-15] MEDS: Acetaminophen 500 MG TAB PO SCH ×3 (06:33→18:05)
[2022-06-15] MEDS: Losartan 25 MG TAB PO SCH (09:29)
[2022-06-15] MEDS: Senokot S 8.6-50 MG TAB PO SCH ×2 (09:29→21:17)
[2022-06-15] MEDS: Multivit, Therapeutic 1 TAB PO SCH (09:29)
[2022-06-15] MEDS: Polyethylene Glycol 3350 17 GM Packet PO SCH (09:29)
[2022-06-15] MEDS: Chlorhexidine Gluconate 15 ML UDCUP SSP SCH ×2 (09:29→21:17)
[2022-06-15] MEDS: Amlodipine 5 MG TAB PO SCH (09:30)
[2022-06-15] MEDS: Thiamine 100 MG TAB PO SCH (09:30)
[2022-06-15] MEDS: Tamsulosin HCl 0.4 MG CAP PO SCH (09:30)
[2022-06-15] MEDS: Folic Acid 1 MG TAB PO SCH (09:30)
[2022-06-15] MEDS: Saccharomyces boulardii 250 MG CAP PO SCH (21:17)
[2022-06-15] MEDS: Melatonin 3 MG TAB PO SCH (21:17)
[2022-06-16] MEDS: Acetaminophen 500 MG TAB PO SCH ×4 (00:04→18:09)
[2022-06-16] MEDS: traMADol HCl 50 MG TAB PO SCH ×4 (00:05→18:08)
[2022-06-16] MEDS: Meropenem 1 GM in Sodium Chloride 0.9% 100 ML IVPB SCH ×3 (05:47→21:07)
[2022-06-16] MEDS: Amlodipine 5 MG TAB PO SCH (09:12)
[2022-06-16] MEDS: Chlorhexidine Gluconate 15 ML UDCUP SSP SCH ×2 (09:13→21:08)
[2022-06-16] MEDS: Thiamine 100 MG TAB PO SCH (09:13)
[2022-06-16] MEDS: Multivit, Therapeutic 1 TAB PO SCH (09:13)
[2022-06-16] MEDS: Folic Acid 1 MG TAB PO SCH (09:13)
[2022-06-16] MEDS: Tamsulosin HCl 0.4 MG CAP PO SCH (09:13)
[2022-06-16] MEDS: Losartan 25 MG TAB PO SCH (09:13)
[2022-06-16] MEDS: Polyethylene Glycol 3350 17 GM Packet PO SCH (09:14)
[2022-06-16] MEDS: Senokot S 8.6-50 MG TAB PO SCH ×2 (09:14→21:09)
[2022-06-16] MEDS: Melatonin 3 MG TAB PO SCH (21:08)
[2022-06-16] MEDS: Saccharomyces boulardii 250 MG CAP PO SCH (21:08)
[2022-06-17] MEDS: Acetaminophen 500 MG TAB PO SCH ×5 (00:28→17:41)
[2022-06-17] MEDS: traMADol HCl 50 MG TAB PO SCH ×4 (00:35→17:42)
[2022-06-17] MEDS: Meropenem 1 GM in Sodium Chloride 0.9% 100 ML IVPB SCH ×3 (05:17→21:26)
[2022-06-17] MEDS: Chlorhexidine Gluconate 15 ML UDCUP SSP SCH ×2 (08:44→20:31)
[2022-06-17] MEDS: Polyethylene Glycol 3350 17 GM Packet PO SCH (08:44)
[2022-06-17] MEDS: Tamsulosin HCl 0.4 MG CAP PO SCH (08:45)
[2022-06-17] MEDS: Folic Acid 1 MG TAB PO SCH (08:45)
[2022-06-17] MEDS: Senokot S 8.6-50 MG TAB PO SCH ×2 (08:45→20:31)
[2022-06-17] MEDS: Thiamine 100 MG TAB PO SCH (08:45)
[2022-06-17] MEDS: Amlodipine 5 MG TAB PO SCH (08:45)
[2022-06-17] MEDS: Multivit, Therapeutic 1 TAB PO SCH (08:45)
[2022-06-17] MEDS: Losartan 25 MG TAB PO SCH (08:46)
[2022-06-17] MEDS: Saccharomyces boulardii 250 MG CAP PO SCH (20:31)
[2022-06-17] MEDS: Melatonin 3 MG TAB PO SCH (20:31)
[2022-06-18] MEDS: Acetaminophen 500 MG TAB PO SCH ×4 (00:20→17:30)
[2022-06-18] MEDS: traMADol HCl 50 MG TAB PO SCH ×4 (00:21→17:31)
[2022-06-18] MEDS: Meropenem 1 GM in Sodium Chloride 0.9% 100 ML IVPB SCH ×3 (05:33→21:02)
[2022-06-18] MEDS: Polyethylene Glycol 3350 17 GM Packet PO SCH (08:58)
[2022-06-18] MEDS: Multivit, Therapeutic 1 TAB PO SCH (08:58)
[2022-06-18] MEDS: Chlorhexidine Gluconate 15 ML UDCUP SSP SCH ×2 (08:58→21:02)
[2022-06-18] MEDS: Senokot S 8.6-50 MG TAB PO SCH ×2 (08:58→21:02)
[2022-06-18] MEDS: Amlodipine 5 MG TAB PO SCH (08:59)
[2022-06-18] MEDS: Tamsulosin HCl 0.4 MG CAP PO SCH (08:59)
[2022-06-18] MEDS: Thiamine 100 MG TAB PO SCH (08:59)
[2022-06-18] MEDS: Losartan 25 MG TAB PO SCH (09:00)
[2022-06-18] MEDS: Folic Acid 1 MG TAB PO SCH (09:00)
[2022-06-18] MEDS ORDERED: Bacitracin 1 PK ONE (19:39)
[2022-06-18] MEDS: Saccharomyces boulardii 250 MG CAP PO SCH (21:02)
[2022-06-18] MEDS: Melatonin 3 MG TAB PO SCH (21:02)
[2022-06-19] MEDS: Acetaminophen 500 MG TAB PO SCH ×4 (00:25→17:35)
[2022-06-19] MEDS: traMADol HCl 50 MG TAB PO SCH ×4 (00:25→17:35)
[2022-06-19] MEDS: Meropenem 1 GM in Sodium Chloride 0.9% 100 ML IVPB SCH ×3 (06:06→21:42)
[2022-06-19] MEDS: Polyethylene Glycol 3350 17 GM Packet PO SCH (08:34)
[2022-06-19] MEDS: Chlorhexidine Gluconate 15 ML UDCUP SSP SCH ×2 (08:36→21:42)
[2022-06-19] MEDS: Losartan 25 MG TAB PO SCH (08:37)
[2022-06-19] MEDS: Thiamine 100 MG TAB PO SCH (08:37)
[2022-06-19] MEDS: Folic Acid 1 MG TAB PO SCH (08:37)
[2022-06-19] MEDS: Amlodipine 5 MG TAB PO SCH (08:37)
[2022-06-19] MEDS: Multivit, Therapeutic 1 TAB PO SCH (08:37)
[2022-06-19] MEDS: Senokot S 8.6-50 MG TAB PO SCH ×2 (08:37→21:42)
[2022-06-19] MEDS: Tamsulosin HCl 0.4 MG CAP PO SCH (08:38)
[2022-06-19] MEDS: Saccharomyces boulardii 250 MG CAP PO SCH (21:42)
[2022-06-19] MEDS: Melatonin 3 MG TAB PO SCH (21:42)
[2022-06-20] MEDS: traMADol HCl 50 MG TAB PO SCH ×4 (00:20→18:30)
[2022-06-20] MEDS: Acetaminophen 500 MG TAB PO SCH ×4 (00:21→18:29)
[2022-06-20] MEDS: Meropenem 1 GM in Sodium Chloride 0.9% 100 ML IVPB SCH ×3 (06:13→21:40)
[2022-06-20] MEDS: Chlorhexidine Gluconate 15 ML UDCUP SSP SCH ×2 (08:36→21:40)
[2022-06-20] MEDS: Senokot S 8.6-50 MG TAB PO SCH ×2 (08:36→21:40)
[2022-06-20] MEDS: Polyethylene Glycol 3350 17 GM Packet PO SCH (08:36)
[2022-06-20] MEDS: Folic Acid 1 MG TAB PO SCH (08:37)
[2022-06-20] MEDS: Tamsulosin HCl 0.4 MG CAP PO SCH (08:37)
[2022-06-20] MEDS: Multivit, Therapeutic 1 TAB PO SCH (08:37)
[2022-06-20] MEDS: Amlodipine 5 MG TAB PO SCH (08:37)
[2022-06-20] MEDS: Losartan 25 MG TAB PO SCH (08:37)
[2022-06-20] MEDS: Thiamine 100 MG TAB PO SCH (08:37)
[2022-06-20] MEDS: Saccharomyces boulardii 250 MG CAP PO SCH (21:40)
[2022-06-20] MEDS: Melatonin 3 MG TAB PO SCH (21:40)
[2022-06-21] MEDS: Acetaminophen 500 MG TAB PO SCH ×2 (00:06→06:10)
[2022-06-21] MEDS: traMADol HCl 50 MG TAB PO SCH ×4 (00:07→18:35)
[2022-06-21 05:26] LABS: #Basophils 0.1 thou/uL (0.0-0.2); #Eosinphils 0.5 thou/uL (0.0-0.7); #Lymphocytes 2.6 thou/uL (1.20-3.40); #Neutrophils 3.5 thou/uL (1.40-6.50); %Basophils 1.1 % (0.0-1.0); %Eosinophils 6.3 % (0.0-10.0); %Lymphocytes 34.5 % (21.0-51.0); %Monocytes 12.7 % (0.0-10.0); %Neutrophils 45.3 % (42.0-75.0); Hemoglobin 10.7 g/dL (14.0-18.0); Mean Corpuscular HGB CONC 34.3 g/dL (32.0-36.0); Mean Corpuscular Hemoglobin 30.9 pg (27.0-31.0); Mean Corpuscular Volume 90.2 fl (78.0-98.0); Mean Platelet Volume 7.1 fL (7.4-10.4); Platelet Count 311 10x3/uL (130-400); RBC Distribution Width 12.2 % (11.5-14.5); Red Blood Cell (RBC) Count 3.46 mill/uL (4.70-6.10); White Blood Cell (WBC) Count 7.6 10x3/uL (4.8-10.8)
[2022-06-21 05:32] LABS: ALT (SGPT) 74 U/L (8-55); AST (SGOT) 49 U/L (5-34); Albumin 3.6 g/dL (3.4-4.8); Anion Gap 12 mmol/L (10-20); BUN (Urea Nitrogen) 19 mg/dL (8.4-25.7); Bilirubin, Total 0.4 mg/dL (0.2-1.2); CRP (Inflammatory) Less than 0.50 mg/dL (= or < 0.5); Calc. Creatinine Clearance 79 mL/min (70-130); Calcium 9.1 mg/dL (7.8-10.44); Carbon Dioxide 24 mmol/L (23-31); Chloride 101 mmol/L (98-107); Estimated GFR 99; Globulin 3.2 g/dL (2.4-3.5); Glucose 93 mg/dL (83-110); Potassium 4.4 mmol/L (3.5-5.1); Protein, Total 6.8 g/dL (5.8-8.1); Sodium 133 mmol/L (136-145)
[2022-06-21 05:56] LABS: Alkaline Phosphatase 123 U/L (40-110)
[2022-06-21] MEDS: Meropenem 1 GM in Sodium Chloride 0.9% 100 ML IVPB SCH ×3 (06:11→21:01)
[2022-06-21] MEDS ORDERED: Acetaminophen 500 MG TAB PO PRN (09:00)
[2022-06-21] MEDS: Multivit, Therapeutic 1 TAB PO SCH (10:16)
[2022-06-21] MEDS: Folic Acid 1 MG TAB PO SCH (10:16)
[2022-06-21] MEDS: Losartan 25 MG TAB PO SCH (10:16)
[2022-06-21] MEDS: Senokot S 8.6-50 MG TAB PO SCH ×2 (10:16→21:00)
[2022-06-21] MEDS: Amlodipine 5 MG TAB PO SCH (10:17)
[2022-06-21] MEDS: Thiamine 100 MG TAB PO SCH (10:17)
[2022-06-21] MEDS: Polyethylene Glycol 3350 17 GM Packet PO SCH (10:17)
[2022-06-21] MEDS: Chlorhexidine Gluconate 15 ML UDCUP SSP SCH ×2 (10:17→21:00)
[2022-06-21] MEDS: Tamsulosin HCl 0.4 MG CAP PO SCH (10:17)
[2022-06-21] MEDS: Saccharomyces boulardii 250 MG CAP PO SCH (21:00)
[2022-06-21] MEDS: Melatonin 3 MG TAB PO SCH (21:00)
[2022-06-22] MEDS: traMADol HCl 50 MG TAB PO SCH ×4 (00:03→18:04)
[2022-06-22] MEDS: Meropenem 1 GM in Sodium Chloride 0.9% 100 ML IVPB SCH ×3 (06:06→21:06)
[2022-06-22] MEDS: Losartan 25 MG TAB PO SCH (09:07)
[2022-06-22] MEDS: Folic Acid 1 MG TAB PO SCH (09:07)
[2022-06-22] MEDS: Thiamine 100 MG TAB PO SCH (09:07)
[2022-06-22] MEDS: Senokot S 8.6-50 MG TAB PO SCH ×2 (09:07→21:06)
[2022-06-22] MEDS: Tamsulosin HCl 0.4 MG CAP PO SCH (09:07)
[2022-06-22] MEDS: Amlodipine 5 MG TAB PO SCH (09:08)
[2022-06-22] MEDS: Multivit, Therapeutic 1 TAB PO SCH (09:08)
[2022-06-22] MEDS: Chlorhexidine Gluconate 15 ML UDCUP SSP SCH ×2 (09:08→21:06)
[2022-06-22] MEDS: Polyethylene Glycol 3350 17 GM Packet PO SCH (09:08)
[2022-06-22] MEDS: Melatonin 3 MG TAB PO SCH (21:06)
[2022-06-22] MEDS: Saccharomyces boulardii 250 MG CAP PO SCH (21:06)
[2022-06-23] MEDS: traMADol HCl 50 MG TAB PO SCH ×4 (00:21→17:35)
[2022-06-23] MEDS: Meropenem 1 GM in Sodium Chloride 0.9% 100 ML IVPB SCH ×3 (05:32→21:01)
[2022-06-23] MEDS: Multivit, Therapeutic 1 TAB PO SCH (10:39)
[2022-06-23] MEDS: Tamsulosin HCl 0.4 MG CAP PO SCH (10:39)
[2022-06-23] MEDS: Senokot S 8.6-50 MG TAB PO SCH ×2 (10:39→21:01)
[2022-06-23] MEDS: Folic Acid 1 MG TAB PO SCH (10:39)
[2022-06-23] MEDS: Losartan 25 MG TAB PO SCH (10:39)
[2022-06-23] MEDS: Amlodipine 5 MG TAB PO SCH (10:40)
[2022-06-23] MEDS: Thiamine 100 MG TAB PO SCH (10:41)
[2022-06-23] MEDS: Chlorhexidine Gluconate 15 ML UDCUP SSP SCH ×2 (10:41→21:01)
[2022-06-23] MEDS: Polyethylene Glycol 3350 17 GM Packet PO SCH (10:41)
[2022-06-23] MEDS: Saccharomyces boulardii 250 MG CAP PO SCH (21:01)
[2022-06-23] MEDS: Melatonin 3 MG TAB PO SCH (21:01)
[2022-06-24] MEDS: traMADol HCl 50 MG TAB PO SCH ×4 (00:02→17:35)
[2022-06-24] MEDS: Meropenem 1 GM in Sodium Chloride 0.9% 100 ML IVPB SCH ×3 (05:54→21:08)
[2022-06-24] MEDS: Tamsulosin HCl 0.4 MG CAP PO SCH (08:31)
[2022-06-24] MEDS: Folic Acid 1 MG TAB PO SCH (08:31)
[2022-06-24] MEDS: Senokot S 8.6-50 MG TAB PO SCH ×2 (08:31→21:07)
[2022-06-24] MEDS: Chlorhexidine Gluconate 15 ML UDCUP SSP SCH ×2 (08:31→21:06)
[2022-06-24] MEDS: Polyethylene Glycol 3350 17 GM Packet PO SCH (08:31)
[2022-06-24] MEDS: Multivit, Therapeutic 1 TAB PO SCH (08:31)
[2022-06-24] MEDS: Losartan 25 MG TAB PO SCH (08:32)
[2022-06-24] MEDS: Thiamine 100 MG TAB PO SCH (08:32)
[2022-06-24] MEDS: Amlodipine 5 MG TAB PO SCH (08:32)
[2022-06-24] MEDS: Saccharomyces boulardii 250 MG CAP PO SCH (21:07)
[2022-06-24] MEDS: Melatonin 3 MG TAB PO SCH (21:08)
[2022-06-25] MEDS: traMADol HCl 50 MG TAB PO SCH ×4 (00:19→18:25)
[2022-06-25] MEDS: Meropenem 1 GM in Sodium Chloride 0.9% 100 ML IVPB SCH ×3 (06:15→21:11)
[2022-06-25] MEDS: Polyethylene Glycol 3350 17 GM Packet PO SCH (08:36)
[2022-06-25] MEDS: Chlorhexidine Gluconate 15 ML UDCUP SSP SCH ×2 (08:37→21:10)
[2022-06-25] MEDS: Thiamine 100 MG TAB PO SCH (08:38)
[2022-06-25] MEDS: Tamsulosin HCl 0.4 MG CAP PO SCH (08:38)
[2022-06-25] MEDS: Losartan 25 MG TAB PO SCH (08:38)
[2022-06-25] MEDS: Amlodipine 5 MG TAB PO SCH (08:38)
[2022-06-25] MEDS: Multivit, Therapeutic 1 TAB PO SCH (08:38)
[2022-06-25] MEDS: Senokot S 8.6-50 MG TAB PO SCH ×2 (08:39→21:10)
[2022-06-25] MEDS: Folic Acid 1 MG TAB PO SCH (08:40)
[2022-06-25] MEDS: Melatonin 3 MG TAB PO SCH (21:09)
[2022-06-25] MEDS: Saccharomyces boulardii 250 MG CAP PO SCH (21:10)
[2022-06-26] MEDS: traMADol HCl 50 MG TAB PO SCH ×4 (00:34→18:17)
[2022-06-26] MEDS: Meropenem 1 GM in Sodium Chloride 0.9% 100 ML IVPB SCH ×3 (05:55→22:21)
[2022-06-26] MEDS: Polyethylene Glycol 3350 17 GM Packet PO SCH (08:59)
[2022-06-26] MEDS: Chlorhexidine Gluconate 15 ML UDCUP SSP SCH ×2 (08:59→20:06)
[2022-06-26] MEDS: Tamsulosin HCl 0.4 MG CAP PO SCH (09:00)
[2022-06-26] MEDS: Amlodipine 5 MG TAB PO SCH (09:00)
[2022-06-26] MEDS: Folic Acid 1 MG TAB PO SCH (09:00)
[2022-06-26] MEDS: Losartan 25 MG TAB PO SCH (09:01)
[2022-06-26] MEDS: Senokot S 8.6-50 MG TAB PO SCH ×2 (09:01→20:08)
[2022-06-26] MEDS: Thiamine 100 MG TAB PO SCH (09:01)
[2022-06-26] MEDS: Multivit, Therapeutic 1 TAB PO SCH (09:01)
[2022-06-26] MEDS: Saccharomyces boulardii 250 MG CAP PO SCH (20:06)
[2022-06-26] MEDS: Melatonin 3 MG TAB PO SCH (20:06)
[2022-06-27] MEDS: traMADol HCl 50 MG TAB PO SCH ×2 (00:23→05:53)
[2022-06-27 06:11] VITALS: BP 129/66; TEMP 98.1
== END 2022-06-27 09:05 | disposition home or self-care (01) | DRG 541 ==
LOC: BURMED 12:12
PROVIDERS: ADMIT Family Medicine; ATTEND Family Medicine
DX: M86.8X8 Other osteomyelitis, other site (principal); I10 Essential (primary) hypertension; N40.0 Benign prostatic hyperplasia without lower urinary tract symptoms; R53.1 Weakness
CPT/HCPCS: 36415; 80053; 85025; 86140; 87811; J2185; J3490

== ENCOUNTER 2023-02-28 12:13 | Emergency (ER) | payer MEDICARE ==
[~2023-02-28 12:13] MED LIST: Iopamidol 370 76% 100 ML VIAL ONE
[2023-02-28] MEDS ORDERED: Morphine 4 MG/ML VIAL ONE (12:44)
[2023-02-28] MEDS ORDERED: Ketorolac Tromethamine 30 MG/ML VIAL ONE (12:45)
[2023-02-28 12:47] LABS: #Eosinphils 0.1 thou/uL (0.0-0.7); #Lymphocytes 1.5 thou/uL (1.20-3.40); #Monocytes 0.8 thou/uL (0.11-0.59); #Neutrophils 12.4 thou/uL (1.40-6.50); %Basophils 0.3 % (0.0-1.0); %Eosinophils 0.8 % (0.0-10.0); %Lymphocytes 10.2 % (21.0-51.0); %Monocytes 5.3 % (0.0-10.0); %Neutrophils 83.3 % (42.0-75.0); Hematocrit 35.3 % (42.0-52.0); Hemoglobin 11.1 g/dL (14.0-18.0); Mean Corpuscular HGB CONC 31.5 g/dL (32.0-36.0); Mean Corpuscular Hemoglobin 30.2 pg (27.0-31.0); Mean Corpuscular Volume 95.7 fl (78.0-98.0); Mean Platelet Volume 6.4 fL (7.4-10.4); Platelet Count 659 10x3/uL (130-400); RBC Distribution Width 12.3 % (11.5-14.5); Red Blood Cell (RBC) Count 3.69 mill/uL (4.70-6.10); White Blood Cell (WBC) Count 14.9 10x3/uL (4.8-10.8)
[2023-02-28 13:02] LABS: Albumin 3.3 g/dL (3.4-4.8); Anion Gap 22 mmol/L (10-20); BUN (Urea Nitrogen) 13 mg/dL (8.4-25.7); Bilirubin, Total 0.4 mg/dL (0.2-1.2); Calc. Creatinine Clearance 0 mL/min (70-130); Calcium 8.9 mg/dL (7.8-10.44); Carbon Dioxide 18 mmol/L (23-31); Chloride 102 mmol/L (98-107); Estimated GFR 99; Globulin 3.8 g/dL (2.4-3.5); Glucose 90 mg/dL (83-110); Protein, Total 7.1 g/dL (5.8-8.1); Sodium 138 mmol/L (136-145)
[2023-02-28 13:03] LABS: ALT (SGPT) 14 U/L (8-55); AST (SGOT) 17 U/L (5-34); Alkaline Phosphatase 157 U/L (40-110)
[2023-02-28] MEDS ORDERED: Ondansetron PF 4 MG/2 ML Vial ONE (13:18)
== END 2023-02-28 14:34 | disposition home or self-care (01) ==
LOC: BURERS 12:13
DX: G89.18 Other acute postprocedural pain (principal); R10.11 Right upper quadrant pain; I10 Essential (primary) hypertension; F17.210 Nicotine dependence, cigarettes, uncomplicated
CPT/HCPCS: 36415; 74177; 80053; 83605; 85025; 96361; 96374; 96375; J1885; J2270; J2405; Q9967